=== PATIENT | male | born 1955 | race American Indian/Alaskan Native ===

== ENCOUNTER 2019-02-11 07:44 | Day surgery (SDC) | payer BC, OTHER ==
[~2019-02-11 07:44] MED LIST: NACL 0.9% 1000 ML 1,000 ML IV SCH
[2019-02-11] MEDS ORDERED: DIPRIVAN 10 MG/ML IV ONE ×2 (10:47)
[2019-02-11] MEDS ORDERED: XYLOCAINE 1% 20 mL ONE (10:47)
[2019-02-11] MEDS ORDERED: VERSED ONE (10:47)
--- NOTE | 2019-02-11 11:36 | Operative Report ---
PROCEDURE: EGD with biopsy and esophageal balloon dilation. INDICATIONS: This is a 63-year-old -[place]er gentleman with an underlying history of diabetes mellitus, hypertension, congestive heart failure, which is controlled. He has lately been having some problems with dysphagia. EGD was done to assess for the problem and to treat it if possible. DESCRIPTION OF PROCEDURE: The procedure was done after getting informed consent with MAC anesthesia. Instrument was passed through the hypopharynx into the esophagus, which showed some mild esophageal stenosis. This was dilated at the end of the procedure with 18 mm balloon that was maintained for a minute. Biopsy was also done from the midesophagus to rule out for possible eosinophilic esophagitis. Stomach showed abnormal mucosa in the proximal stomach. Biopsy was done to rule out for any early neoplastic changes. Biopsy was also done from the gastric antrum and the gastric body and angularis incisura to rule out for eosinophilic esophagitis. The pylorus was patent. The duodenum in the first and the second portion appeared normal. There was minimal bleeding from the biopsy sites. ASSESSMENT AND PLAN: Dysphagia; moderate erosive esophagitis; mild esophageal stenosis, status post balloon dilation; abnormal gastric mucosa of the proximal stomach, rule out early neoplasm; gastritis, rule out eosinophilic esophagitis. There was minimal bleeding from the biopsy sites. No complications associated with the procedure. The patient will be treated with PPI as CEA level will be done. We will wait for the biopsy results and further treatment adjustment will be done according to the biopsy findings and a colonoscopy will be done as part of colon polyp screening. The patient will be asked to follow up in the office in 1-2 weeks' time. Procedure was done in the GI lab with assistance of anesthesia and with assistance in the presence of RNRitika and Shi chaidez. JOB# [id number] SANDY/CELSO
[2019-02-11 11:52] VITALS: BP 111/73
--- NOTE | 2019-02-11 14:05 | Anesthesia Day of Surgery ---
Anesthesia Day of Surgery - Day of Surgery Patient Examined: Yes Patient H&P Reviewed: Yes Patient is NPO: Yes
--- NOTE | 2019-02-11 14:05 | Anesthesia Consultation ---
Anesthesia Consult and Med Hx Date of service: 02/11/19 - Airway Anesthetic Teeth Evaluation: Good ROM Head & Neck: Adequate Mental/Hyoid Distance: Adequate Mallampati Class: Class III Intubation Access Assessment: Possibly Difficult - Pulmonary Exam CTA: Yes - Cardiac Exam Cardiac Exam: RRR - Pre-Operative Health Status ASA Pre-Surgery Classification: ASA3 Proposed Anesthetic Plan: MAC - Pulmonary Hx Smoking: No Hx Respiratory Symptoms: No - Cardiovascular System Hx Hypertension: Yes Hx Coronary Artery Disease: No (hx nonischemic CHF EF 30-35%) Hx Heart Attack/AMI: No Hx Percutaneous Transluminal Coronary Angioplasty (PTCA): No Hx Cardia Arrhythmia: No Hx Internal Defibrillator: No (mentioned in previous cardiology note but patient denies) - Central Nervous System CVA: No Hx Psychiatric Problems: No - Gastrointestinal Hx Gastroesophageal Reflux Disease: Yes (controlled) - Endocrine Hx Renal Disease: No Hx Liver Disease: No Hx Non-Insulin Dependent Diabetes: Yes Hx Hypothyroidism: Yes - Other Systems Hx Obesity: No - Additional Comments Anesthesia Medical History Comments: Reviewed most recent TTE, EKG, and cardiology note from outpatient end polisher. Functional capacity >4mets, no SOB/CP, no signs of decompensation. Denies hx arrhythmia.
--- NOTE | 2019-02-11 14:08 | Post Anesthesia Evaluation ---
- Post Anesthesia Evaluation Patient Participated: Yes Airway Patent: Yes Stable Respiratory Function: Yes Nausea/Vomiting: No Temp > 96.8F: Yes Pain Manageable: Yes Adequeate Hydration: Yes Anesthesia Complications: No Other Comments: In PACU, irregular HR noted on monitor. Alert and oriented, normotensive, SpO2 >95% on room air, asymptomatic. 12-lead EKG showed irregular rhythm concerning for a-fib which was new from most recent outpatient EKG and no hx afib known to patient or mentioned in previous cardiology note. Discussed findings and concerns with patient and daughter and they agreed to be taken to the ED for furhter evaluation. Report given to ED board mill supervisor and ED physician.
--- NOTE | 2019-02-11 15:06 | Operative Report ---
INDICATIONS: A 63-year-old -[place]altese gentleman with an underlying history of diabetes mellitus, hypertension, and congestive heart failure, which is well controlled. EGD was done prior to the colonoscopy, which included biopsy as well as balloon dilation of the esophagus. Colonoscopy was done as part of colon polyp screening. DESCRIPTION OF PROCEDURE: Procedure was done after getting informed consent with MAC anesthesia. Initial rectal exam was unremarkable. Instrument was passed through the rectum onto the cecum, which was identified by the ileocecal valve and the appendiceal orifice. Visualization was fair to good. Cecum, ascending colon showed normal mucosa. There was a solitary small polyp noted in the ascending colon that was removed by cold biopsy. The remaining part of the proximal colon, transverse colon, descending colon, and sigmoid showed normal mucosa. There was no additional polyps or diverticular disease noted. The rectum showed mild to moderate internal hemorrhoid on the retroverted view. There was minimal bleeding from the biopsy sites. No complications associated with the procedure. ASSESSMENT: Solitary ascending colon polyp, moderate internal hemorrhoids. PLAN: To encourage the patient to avoid aspirin and aspirin-related products for the next few days. Resume home medication and follow up in the office in 1-2 weeks' time and also wait for the biopsy results from the biopsies the were done from the abnormal mucosa and the proximal stomach. The procedure was done in the GI lab with assistance of anesthesia and with the presence and assistance of RNRitika and Shi chaidez. JOB# [id number] SANDY/CELSO CRAFT
== END 2019-02-11 07:45 | disposition home or self-care (01) ==
LOC: GIO 07:44
DX: Z12.11 Encounter for screening for malignant neoplasm of colon (principal); D12.2 Benign neoplasm of ascending colon; K29.50 Unspecified chronic gastritis without bleeding; K64.8 Other hemorrhoids; K31.89 Other diseases of stomach and duodenum; K22.2 Esophageal obstruction; I48.91 Unspecified atrial fibrillation; I42.8 Other cardiomyopathies; I50.9 Heart failure, unspecified; I11.0 Hypertensive heart disease with heart failure; E78.00 Pure hypercholesterolemia, unspecified; E11.649 Type 2 diabetes mellitus with hypoglycemia without coma; K21.0 Gastro-esophageal reflux disease with esophagitis; M19.90 Unspecified osteoarthritis, unspecified site; E89.0 Postprocedural hypothyroidism; Z79.899 Other long term (current) drug therapy; Z79.82 Long term (current) use of aspirin; Z79.4 Long term (current) use of insulin; Z98.890 Other specified postprocedural states
CPT/HCPCS: 43239; 43249; 45380; 82962; 88305; 88342; 93005; 93010; J2250; J2704; J7030; C1726

== ENCOUNTER 2019-02-11 12:54 | Inpatient (IN) | payer OTHER ==
--- NOTE | 2019-02-11 13:01 | Event Note ---
ED Screening Note ED Screening Note: WAS HAVING COLONOSCOPY AND WENT INTO AFIB HR REG ON ARRIVAL TO ER NO HX OF SAME PMH STRESS NORMAL 1 Y AGO HTN HPLD HYPOTHYROID CHF AMI IN PAST DM RX LIPITOR LISINOPRIL SYNTHROID COREG ASA METOP FARXIGA GLIPIZIDE This initial assessment/diagnostic orders/clinical plan/treatment(s) is/are subject to change based on patients health status, clinical progression and re- assessment by fellow clinical providers in the ED. Further treatment and workup at subsequent clinical providers discretion. Patient/guardian urged not to elope from the ED as their condition may be serious if not clinically assessed and managed. Initial orders include: MUSIC HISTORIAN PAF IN GI LAB [facility] [place]
[2019-02-11 13:33] LABS: Bilirubin,Urine NEG (Negative); Blood,Urine NEG (Negative); Color,Urine Yellow (Yellow); Mucus,Urine FEW /HPF; Protein,Urine <15 mg/dL mg/dL (Negative); Urobilinogen,Urine < 2.0 mg/dL (<2.0); WBC,Urine < 1.0 /HPF (0.0-6.0)
--- NOTE | 2019-02-11 13:43 | Emergency Department Report ---
ED Palpitations HPI - General Chief Complaint: Arrhythmia/Palpitations Stated Complaint: SENT FROM GI LAB Time Seen by Provider: 02/11/19 12:57 Source: patient Mode of arrival: Wheelchair Limitations: No Limitations - History of Present Illness Initial Comments: Patient is a 63-year-old male presents to emergency room for evaluation of new onset A. fib. Patient was having a endoscopy, colonoscopy and GI lab and patient was sent here for evaluation of a new onset A. fib. Patient does not have a history of A. fib. Patient states that he was asymptomatic except for rapid heartbeat and did not have any chest pain, shortness of breath or palpitations.. Patient transported here via wheelchair from our GI lab for evaluation. Patient states she has history of CHF, diabetes and hypertension. 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 MD Complaint: "heart racing" -: Sudden Context: occured during rest Associated Symptoms: denies: chest pain, shortness of breath, syncope, near- syncope, nausea/vomiting, anxiety, diaphoresis, cough, parasthesias, feeling of impending doom, muscle cramps - Related Data Home Medications Medication Instructions Recorded Confirmed Last Taken Aspirin [Aspirin BABY CHEW TAB] 81 mg PO DAILY 09/02/13 02/11/19 02/07/19 Atorvastatin Calcium [Lipitor] 40 mg PO QHS 09/02/13 02/10/19 09/21/12 Carvedilol 25 mg PO BID 09/02/13 02/11/19 02/11/19 Levothyroxine Sodium 100 mcg PO DAILY 09/02/13 02/11/19 02/10/19 Lisinopril 40 mg PO DAILY 09/02/13 02/11/19 02/11/19 Farxiga 1 tab PO DAILY 02/10/19 02/11/19 02/10/19 Metoprolol 1 tab PO DAILY 02/10/19 02/10/19 Unknown glipiZIDE 1 tab PO DAILY 02/10/19 02/11/19 02/10/19 Allergies Allergy/AdvReac Type Severity Reaction Status Date / Time No Known Allergies Allergy Verified 02/11/19 13:01 ED Review of Systems ROS: Stated complaint: SENT FROM GI LAB Other details as noted in HPI Constitutional: denies: chills, fever Eyes: denies: eye pain, eye discharge, vision change ENT: denies: ear pain, throat pain Respiratory: denies: cough, shortness of breath, wheezing Cardiovascular: denies: chest pain, palpitations Endocrine: no symptoms reported Gastrointestinal: denies: abdominal pain, nausea, diarrhea Genitourinary: denies: urgency, dysuria Musculoskeletal: denies: back pain, joint swelling, arthralgia Skin: denies: rash, lesions Neurological: denies: headache, weakness, paresthesias Psychiatric: denies: anxiety, depression Hematological/Lymphatic: denies: easy bleeding, easy bruising ED Past Medical Hx - Past Medical History Previous Medical History?: Yes Hx Hypertension: Yes Hx Heart Attack/AMI: Yes Hx Congestive Heart Failure: Yes Hx Diabetes: Yes Hx GERD: Yes Hx Arthritis: Yes Additional medical history: HLD, gout, hypothyroid - Surgical History Past Surgical History?: Yes Additional Surgical History: thyroidectomy - Family History Family history: no significant - Social History Smoking Status: Never Smoker Substance Use Type: None - Medications Home Medications: Home Medications Medication Instructions Recorded Confirmed Last Taken Type Aspirin [Aspirin BABY CHEW TAB] 81 mg PO DAILY 09/02/13 02/11/19 02/07/19 History Atorvastatin Calcium [Lipitor] 40 mg PO QHS 09/02/13 02/10/19 09/21/12 History Carvedilol 25 mg PO BID 09/02/13 02/11/19 02/11/19 History Levothyroxine Sodium 100 mcg PO DAILY 09/02/13 02/11/19 02/10/19 History Lisinopril 40 mg PO DAILY 09/02/13 02/11/19 02/11/19 History Farxiga 1 tab PO DAILY 02/10/19 02/11/19 02/10/19 History Metoprolol 1 tab PO DAILY 02/10/19 02/10/19 Unknown History glipiZIDE 1 tab PO DAILY 02/10/19 02/11/19 02/10/19 History ED Physical Exam - General Limitations: No Limitations General appearance: alert, in no apparent distress - Head Head exam: Present: atraumatic, normocephalic - Eye Eye exam: Present: normal appearance - ENT ENT exam: Present: mucous membranes moist - Neck Neck exam: Present: normal inspection - Respiratory Respiratory exam: Present: normal lung sounds bilaterally. Absent: respiratory distress, wheezes, rales - Cardiovascular Cardiovascular Exam: Present: regular rate, normal rhythm. Absent: systolic murmur, diastolic murmur, rubs, gallop - GI/Abdominal GI/Abdominal exam: Present: soft, normal bowel sounds. Absent: distended, tenderness, guarding - Rectal Rectal exam: Present: deferred - Extremities Exam Extremities exam: Present: normal inspection - Back Exam Back exam: Present: normal inspection - Neurological Exam Neurological exam: Present: alert, oriented X3 - Psychiatric Psychiatric exam: Present: normal affect, normal mood - Skin Skin exam: Present: warm, dry, intact, normal color. Absent: rash ED Course Vital Signs 02/11/19 02/11/19 02/11/19 12:57 14:29 14:30 Temperature 97.9 F Pulse Rate 79 77 Respiratory 13 22 Rate Blood Pressure 134/83 115/83 [Right] O2 Sat by Pulse 100 98 98 Oximetry - Reevaluation(s) Reevaluation #1: Discussed all results with patient. Patient will be admitted to the hospitalist service. Patient agrees to plan of care. 02/11/19 14:59 - Consultations Consultation #1: Hospitalist consulted for admission. Hospitalist to admit patient. Hospitalist to assume care patient. 02/11/19 14:59 ED Medical Decision Making - Lab Data Result diagrams: 02/11/19 13:32 02/11/19 13:32 - EKG Data EKG shows normal: axis, intervals, QRS complexes, ST-T waves Rate: normal - EKG Data Interpretation: other (atrial fibrillation) - Radiology Data Radiology results: report reviewed CHEST 2 VIEWS INDICATION: Chest pain, shortness of breath, tachycardia. COMPARISON: None FINDINGS: Support devices: None. Heart: Within normal limits. Sternotomy wires are noted indicating previous thoracic surgery. Lungs/pleura: No acute air space or interstitial disease. No pneumothorax. Additional findings: None. IMPRESSION: No acute findings. - Medical Decision Making Patient is a 63-year-old male that presents to emergency room with new onset A. fib. Patient's labs unremarkable. Patient's EKG confirms A. fib. Patient admitted to the hospitalist service. Patient's labs are unremarkable. Chest x- ray negative. - Differential Diagnosis new-onset A. fib Critical Care Time: Yes Critical care attestation.: If time is entered above; I have spent that time in minutes in the direct care of this critically ill patient, excluding procedure time. Critical Care Time: 35 minutes ED Disposition Clinical Impression: New onset a-fib Disposition: DC-09 OP ADMIT IP TO THIS HOSP Is pt being admited?: Yes Does the pt Need Aspirin: No Condition: Critical Time of Disposition: 15:01
[2019-02-11 13:49] LABS: Eosinophils % (Auto) 0.5 % (0.0-4.3); Hematocrit 46.3 % (35.5-45.6); Hemoglobin 15.5 gm/dl (11.8-15.2); Lymphocytes # (Auto) 0.7 K/mm3 (1.2-5.4); Lymphocytes % (Auto) 14.2 % (13.4-35.0); Mean Corpuscular HGB Conc 33 % (32-34); Mean Corpuscular Volume 89 fl (84-94); Monocytes # (Auto) 0.7 K/mm3 (0.0-0.8); Monocytes % (Auto) 13.7 % (0.0-7.3); Platelet Count 206 K/mm3 (140-440); Red Cell Distribution Width 14.7 % (13.2-15.2)
--- NOTE | 2019-02-11 14:01 | XRay Report ---
CHEST 2 VIEWS INDICATION: Chest pain, shortness of breath, tachycardia. COMPARISON: None FINDINGS: Support devices: None. Heart: Within normal limits. Sternotomy wires are noted indicating previous thoracic surgery. Lungs/pleura: No acute air space or interstitial disease. No pneumothorax. Additional findings: None. IMPRESSION: No acute findings. Signer Name: Tahir Gonsalez Jr, MD Signed: 02/11/2019 1:57 PM Workstation Name: [id number]
[2019-02-11 14:15] LABS: Alanine Aminotransferase 15 units/L (7-56); Albumin 4.4 g/dL (3.9-5); BUN/Creatinine Ratio 11; Blood Urea Nitrogen 13 mg/dL (9-20); Calcium 9.7 mg/dL (8.4-10.2); Hemolysis Index 7
--- NOTE | 2019-02-12 00:01 | Event Note ---
Date: 02/11/19 See dictated history and physical in the reports Atrial fibrillation with rapid ventricular rate Hypertension Hypothyroidism Congestive heart failure Type 2 diabetes Hyperlipidemia
[2019-02-12] MEDS ORDERED: LASIX PO PRN (00:02)
[2019-02-12] MEDS ORDERED: SODIUM CHLORIDE FLUSH SYRINGE 10 ML IV PRN (00:03)
[2019-02-12] MEDS ORDERED: DILAUDID IV PRN (00:03)
[2019-02-12] MEDS ORDERED: ZOFRAN IV PRN (00:03)
[2019-02-12] MEDS ORDERED: TYLENOL PO PRN (00:03)
[2019-02-12] MEDS: GLUCOTROL PO SCH ×3 (00:25→22:39)
[2019-02-12] MEDS: COREG PO SCH ×3 (00:34→19:07)
[2019-02-12] MEDS: PEPCID PO SCH ×3 (00:37→22:39)
--- NOTE | 2019-02-12 02:12 | History and Physical Report ---
CHIEF COMPLAINT: Palpitations since during endoscopy procedure. HISTORY OF PRESENT ILLNESS: A 63-year-old male sent to the Emergency Room for evaluation of new-onset AFib with rapid ventricular rate. The patient was having endoscopy in the form of colonoscopy in the GI lab, and the patient was found to have atrial fibrillation with rapid ventricular rate. The patient was sent to the Emergency Room for evaluation. The patient does not have any chest pain. The patient has palpitations. The patient has been transferred from the GI lab to the Emergency Room for fast heart rate and atrial fibrillation. No syncope, no seizures. No chest pain. No diaphoresis. PAST MEDICAL HISTORY: Significant for hypertension, coronary artery disease, congestive heart failure, diabetes, GERD, arthritis, hyperlipidemia and hypothyroidism. PAST SURGICAL HISTORY: Thyroidectomy. SOCIAL HISTORY: Does not smoke. FAMILY HISTORY: Hypertension. CURRENT MEDICATIONS: On chart. REVIEW OF SYSTEMS: Significant for palpitations. No chest pain. Otherwise, review of systems negative. PHYSICAL EXAMINATION: GENERAL: Elderly male, cooperative during examination. VITAL SIGNS: Blood pressure is 121/73, temperature is 98.5, pulse is 77, respirations are 18, sats are 97%. HEENT: Unremarkable. Pupils equal and reactive. NECK: Supple, no lymphadenopathy, no thyromegaly. LUNGS: Clear to auscultation and percussion. Good air entry. CARDIOVASCULAR: S1, S2 heard. No gallop, no murmur, no rub. Apical impulse in left fifth intercostal space and midclavicular line. Fast, irregular heart rate. ABDOMEN: Soft and benign. No hepatosplenomegaly. No guarding, no rigidity. Hernial orifices are normal. EXTREMITIES: Good pedal pulses. No pedal edema. CENTRAL NERVOUS SYSTEM: Alert and oriented x 4, nonfocal exam. LABORATORY DATA: Significant for a white count of 5100, H and H of 15.5 and 46.3, platelet count of 206,000. Electrolytes are normal. Glucose is 115 and 181. Urine is normal. EKG shows atrial fibrillation with rapid ventricular rate. Chest x-ray, no acute findings. ASSESSMENT AND PLAN: 1. Atrial fibrillation with rapid ventricular rate. The patient initiated on p.o. Cardizem. Also to continue Coreg. Rate is improved. Cardiology consult requested. 2. Type 2 diabetes. Continue Glucotrol and alogliptin and metformin. Accu-Cheks a.c. and at bedtime with moderate dose sliding scale coverage. 3. Hypertension. Continue lisinopril and spironolactone. Also, diltiazem CD 120 mg daily. 4. Hypothyroidism. Continue levothyroxine. 5. Hyperlipidemia. Continue statins. 6. Gastroesophageal reflux disease. Continue famotidine. 7. Deep venous thrombosis prophylaxis, Lovenox 40 mg subcutaneous daily. [facility]# [id number] VSM/NTS
[2019-02-12] MEDS: CARDIZEM PO SCH ×3 (03:48→12:39)
[2019-02-12] MEDS: SYNTHROID PO SCH (05:20)
[2019-02-12] MEDS ORDERED: NON-FORMULARY (Dapagliflozin Propanediol [Farxiga] 10 MG) PO SCH (10:00)
[2019-02-12] MEDS ORDERED: ALOGLIPTIN BENZOATE 25 MG PO SCH (10:00)
[2019-02-12] MEDS: BABY ASPIRIN PO SCH (10:09)
[2019-02-12] MEDS: THERAGRAN Tab PO SCH (10:09)
[2019-02-12] MEDS: SODIUM CHLORIDE FLUSH SYRINGE 10 ML IV SCH ×2 (10:10→22:40)
[2019-02-12] MEDS: ZESTRIL PO SCH (10:10)
[2019-02-12] MEDS: ALDACTONE PO SCH (10:13)
--- NOTE | 2019-02-12 16:31 | Consultation ---
History of Present Illness Consult date: 02/12/19 Requesting physician: YUMI FALLON Consult reason: atrial fibrillation History of present illness: The patient is a 63 YO male with a past medical history of NICMP, HFrEF, HTN, DM, hypothyroidism s/p thyroidectomy (2008), GERD. He is followed by Dr. Bui at [facility]. He presented for evaluation of new onset atrial fibrillation and atrial flutter. Pt presented yesterday for scheduled endoscopy with Dr. Mckenzie. He states that following his endoscopy, he was noted to be in atrial fibrillation and atrial flutter and was referred to ED for further eval/management. Pt denies any occurrence of cardiac symptoms. He denies any known prior history of arrhythmia. Echo done 11/2017 showed EF 30-35%, mild TR. Past History Past Medical History: diabetes, GERD, heart failure, hypertension, hypothyroidism Past Surgical History: thyroidectomy Social history: denies: smoking, alcohol abuse, prescription drug abuse Medications and Allergies Allergies Allergy/AdvReac Type Severity Reaction Status Date / Time No Known Allergies Allergy Verified 02/11/19 13:01 Home Medications Medication Instructions Recorded Confirmed Last Taken Type Aspirin [Aspirin BABY CHEW TAB] 81 mg PO DAILY 09/02/13 02/11/19 02/07/19 History Alogliptin Benzoate [Alogliptin] 25 mg PO QDAY 02/11/19 02/11/19 Unknown History AtorvaSTATin [Lipitor] 80 mg PO QHS 02/11/19 02/11/19 Unknown History Carvedilol [Coreg] 6.25 mg PO BID 02/11/19 02/11/19 02/11/19 History Dapagliflozin Propanediol [Farxiga] 10 mg PO QDAY 02/11/19 02/11/19 Unknown History Furosemide [Lasix TAB] 80 mg PO QDAY PRN 02/11/19 02/11/19 Unknown History Levothyroxine [Synthroid] 125 mcg PO QAM 02/11/19 02/11/19 Unknown History Lisinopril [Zestril TAB] 10 mg PO QDAY 02/11/19 02/11/19 02/11/19 History Multivitamin Tab [Multiple Vitamin 1 each PO QDAY 02/11/19 02/11/19 Unknown History TAB (Theragran)] Spironolactone [Aldactone] 25 mg PO QDAY 02/11/19 02/11/19 Unknown History glipiZIDE [Glucotrol] 10 mg PO BID 02/11/19 02/11/19 Unknown History Active Meds: Active Medications Acetaminophen (Tylenol) 650 mg PO Q4H PRN PRN Reason: Pain MILD(1-3)/Fever >100.5/DORSEY Aspirin (Baby Aspirin) 81 mg PO DAILY [facility] Last Admin: 02/12/19 10:09 Dose: 81 mg Documented by: Atorvastatin Calcium (Lipitor) 80 mg PO QHS [facility] Carvedilol (Coreg) 6.25 mg PO BID [facility] Last Admin: 02/12/19 10:09 Dose: 6.25 mg Documented by: Diltiazem HCl (Cardizem) 30 mg PO Q6HR [facility] Last Admin: 02/12/19 12:39 Dose: 30 mg Documented by: Enoxaparin Sodium (Lovenox) 40 mg SUB-Q QDAY@2200 [facility] Famotidine (Pepcid) 20 mg PO BID [facility] Last Admin: 02/12/19 10:09 Dose: 20 mg Documented by: Furosemide (Lasix) 80 mg PO QDAY PRN PRN Reason: Edema Glipizide (Glucotrol) 10 mg PO BID [facility] Last Admin: 02/12/19 10:09 Dose: 10 mg Documented by: Hydromorphone HCl (Dilaudid) 0.5 mg IV Q3H PRN PRN Reason: Pain , Severe (7-10) Insulin Human Lispro (Humalog) 0 unit SUB-Q QHS [facility]; Protocol Levothyroxine Sodium (Synthroid) 125 mcg PO QAM@0600 [facility] Last Admin: 02/12/19 05:20 Dose: 125 mcg Documented by: Lisinopril (Zestril) 10 mg PO QDAY [facility] Last Admin: 02/12/19 10:10 Dose: Not Given Documented by: Miscellaneous Medication (Alogliptin Benzoate [Alogliptin]) 25 mg PO QDAY [facility] Miscellaneous Medication (Dapagliflozin Propanediol [Farxiga]) 10 mg PO QDAY [facility] Multivitamins (Theragran Tab) 1 each PO QDAY [facility] Last Admin: 02/12/19 10:09 Dose: 1 each Documented by: Ondansetron HCl (Zofran) 4 mg IV Q8H PRN PRN Reason: Nausea And Vomiting Oxycodone/Acetaminophen (Percocet 5/325) 1 tab PO Q6H PRN PRN Reason: Pain, Moderate (4-6) Sodium Chloride (Sodium Chloride Flush Syringe 10 Ml) 10 ml IV BID [facility] Last Admin: 02/12/19 10:10 Dose: 10 ml Documented by: Sodium Chloride (Sodium Chloride Flush Syringe 10 Ml) 10 ml IV PRN PRN PRN Reason: LINE FLUSH Spironolactone (Aldactone) 25 mg PO QDAY [facility] Last Admin: 02/12/19 10:13 Dose: Not Given Documented by: Review of Systems All systems: negative (no complaints) Physical Examination Vital Signs Temp Pulse Resp BP Pulse Ox 97.9 F 79 13 134/83 100 02/11/19 12:57 02/11/19 12:57 02/11/19 12:57 02/11/19 12:57 02/11/19 12:57 General appearance: no acute distress HEENT: Positive: PERRL, Normocephaly, Mucus Membranes Moist Neck: Positive: neck supple, trachea midline Cardiac: Positive: irregularly irregular, S1/S2 Lungs: Positive: Decreased Breath Sounds Neuro: Positive: Grossly Intact Abdomen: Negative: Tender Skin: Negative: Rash Musculoskeletal: No Pain Extremities: Absent: edema Results 02/11/19 13:32 02/11/19 13:32 - Imaging and Cardiology Echo: pending, report reviewed ( 11/2017 showed EF 30-35%, mild TR. ) EKG: report reviewed, image reviewed EKG interpretations - Telemetry EKG Rhythm: Atrial Fibrillation - EKG Supraventricular dysrhythmia: atrial fibrillation Assessment and Plan Optimize HR- d/c CCB in setting of CMP and increase coreg. Initiate heparin gtt. Tentatively plan for AUGUSTINA guided DCCV in tomorrow. NPO after MN. The patient has been seen in conjunction with Dr. Harmon who agrees with the assessment and plan of care. - Patient Problems (1) Atrial fibrillation and flutter Current Visit: Yes Status: Acute (2) NICM (nonischemic cardiomyopathy) Current Visit: Yes Status: Chronic (3) HTN (hypertension) Current Visit: Yes Status: Chronic (4) Diabetes Current Visit: Yes Status: Chronic (5) Hypothyroidism Current Visit: Yes Status: Chronic (6) S/P thyroidectomy Current Visit: Yes Status: Chronic
[2019-02-12] MEDS ORDERED: COREG PO SCH (16:39)
[2019-02-12] MEDS ORDERED: HEPARIN 10,000 UNITS/10 ML IV ONE (16:47)
[2019-02-12] MEDS ORDERED: HEPARIN/ 0.45% NACL-25,000 UNIT/500 ML 25,000 UNIT/500 ML BAG IV SCH (17:00)
[2019-02-12 20:48] LABS: Hemoglobin 15.4 gm/dl (11.8-15.2)
[2019-02-12 20:59] LABS: INR 1.42 (0.87-1.13)
[2019-02-12 21:53] LABS: Partial Thromboplastin Time > 240.0 Sec. (24.2-36.6)
[2019-02-12] MEDS ORDERED: LOVENOX SUB-Q SCH (22:00)
[2019-02-12] MEDS ORDERED: ELIQUIS PO SCH (22:00)
[2019-02-12] MEDS: HumaLOG SUB-Q SCH (22:39)
[2019-02-13] MEDS: COREG PO SCH ×3 (00:37→22:02)
[2019-02-13] MEDS: SYNTHROID PO SCH (06:14)
[2019-02-13 06:32] LABS: Hematocrit 46.8 % (35.5-45.6); Hemoglobin 15.6 gm/dl (11.8-15.2); Mean Corpuscular HGB Conc 33 % (32-34); Mean Corpuscular Volume 89 fl (84-94); Platelet Count 220 K/mm3 (140-440); Red Blood Count 5.27 M/mm3 (3.65-5.03); Red Cell Distribution Width 14.5 % (13.2-15.2)
[2019-02-13 07:19] LABS: Alanine Aminotransferase 15 units/L (7-56); Albumin 4.3 g/dL (3.9-5); BUN/Creatinine Ratio 13; Blood Urea Nitrogen 15 mg/dL (9-20); Calcium 9.7 mg/dL (8.4-10.2); Hemolysis Index 3
--- NOTE | 2019-02-13 08:44 | Progress Note ---
Assessment and Plan Assessment and plan: New onset Atrial fibrillation with RVR Patient was having colonoscopy Admitted Cardiology following Coreg for rate control Hypertension Monitor BP Diabetes mellitus type 2 Fingerstick qac and hs Hypothyroidism Non-ischemic cardiomyopathy Chronic systolic CHF Coreg, Aldactone Full code History Interval history: Patient was having colonoscopy developed rapid afib Palpitations No chest pain Hospitalist Physical - Physical exam Narrative exam: Gen: Not in acute distress, lying in bed, HEENT: Normocephalic, atraumatic Neck: supple, no JVD Heart: S1 and S2 irreg, rapid, no murmurs, rubs or gallop Lungs: Clear, no crackles or wheeze Abd: soft, non tender, non distended, normal BS Ext:no edema, no clubbing, no cyanosis Neuro: Awake,alert,oriented,moves all ext Psych:Normal mood - Constitutional Vitals: Temp Pulse Resp BP Pulse Ox 98.0 F 65 20 95/54 100 02/13/19 04:27 02/13/19 04:27 02/13/19 04:27 02/13/19 04:27 02/13/19 04:27 General appearance: Present: no acute distress Results - Labs CBC & Chem 7: 02/14/19 05:01 02/14/19 05:01 Labs: Laboratory Last Values WBC 4.6 K/mm3 (4.5-11.0) 02/13/19 05:40 RBC 5.27 M/mm3 (3.65-5.03) H 02/13/19 05:40 Hgb 15.6 gm/dl (11.8-15.2) H 02/13/19 05:40 Hct 46.8 % (35.5-45.6) H 02/13/19 05:40 MCV 89 fl (84-94) 02/13/19 05:40 MCH 30 pg (28-32) 02/13/19 05:40 MCHC 33 % (32-34) 02/13/19 05:40 RDW 14.5 % (13.2-15.2) 02/13/19 05:40 Plt Count 220 K/mm3 (140-440) 02/13/19 05:40 Lymph % (Auto) 14.2 % (13.4-35.0) 02/11/19 13:32 [place] % (Auto) Receptionist Secretary 02/13/19 05:40 Eos % (Auto) 0.5 % (0.0-4.3) 02/11/19 13:32 Baso % (Auto) 1.0 % (0.0-1.8) 02/11/19 13:32 Lymph # 0.7 K/mm3 (1.2-5.4) L 02/11/19 13:32 [place] # 0.7 K/mm3 (0.0-0.8) 02/11/19 13:32 Eos # 0.0 K/mm3 (0.0-0.4) 02/11/19 13:32 Baso # 0.0 K/mm3 (0.0-0.1) 02/11/19 13:32 Seg Neutrophils % 70.6 % (40.0-70.0) H 02/11/19 13:32 Seg Neutrophils # 3.6 K/mm3 (1.8-7.7) 02/11/19 13:32 PT 17.0 Sec. (12.2-14.9) H 02/12/19 20:14 INR 1.42 (0.87-1.13) H 02/12/19 20:14 APTT > 240.0 Sec. (24.2-36.6) H* 02/12/19 20:14 Heparin Anti-Xa Level 1.35 U.I./ml (0.3-0.7) H 02/13/19 06:10 Sodium 135 mmol/L (137-145) L 02/13/19 05:40 Potassium 4.4 mmol/L (3.6-5.0) 02/13/19 05:40 Chloride 97.2 mmol/L (98-107) L 02/13/19 05:40 Carbon Dioxide 27 mmol/L (22-30) 02/13/19 05:40 15 mmol/L 02/13/19 05:40 BUN 15 mg/dL (9-20) 02/13/19 05:40 1.2 mg/dL (0.8-1.5) 02/13/19 05:40 Estimated GFR > 60 ml/min 02/13/19 05:40 13 % 02/13/19 05:40 Glucose 144 mg/dL (75-100) H 02/13/19 05:40 POC Glucose 174 (70-105) H 02/12/19 21:40 7.0 % (4-6) H 02/12/19 02:04 Calcium 9.7 mg/dL (8.4-10.2) 02/13/19 05:40 Magnesium 1.90 mg/dL (1.7-2.3) 02/11/19 13:32 0.60 mg/dL (0.1-1.2) 02/13/19 05:40 AST 14 units/L (5-40) 02/13/19 05:40 ALT 15 units/L (7-56) 02/13/19 05:40 100 units/L (35-129) 02/13/19 05:40 < 0.010 ng/mL (0.00-0.029) 02/11/19 15:44 7.7 g/dL (6.3-8.2) 02/13/19 05:40 4.3 g/dL (3.9-5) 02/13/19 05:40 1.3 % 02/13/19 05:40 TSH 1.040 mlU/mL (0.270-4.200) 02/11/19 13:32 Yellow (Yellow) 02/11/19 Unknown Clear (Clear) 02/11/19 Unknown 6.0 (5.0-7.0) 02/11/19 Unknown Ur Specific [place] 1.013 (1.003-1.030) 02/11/19 Unknown <15 mg/dl mg/dL (Negative) 02/11/19 Unknown >=500 mg/dL (Negative) 02/11/19 Unknown 20 mg/dL (Negative) 02/11/19 Unknown Neg (Negative) 02/11/19 Unknown Neg (Negative) 02/11/19 Unknown Neg (Negative) 02/11/19 Unknown < 2.0 mg/dL (<2.0) 02/11/19 Unknown Ur Leukocyte Esterase Neg (Negative) 02/11/19 Unknown < 1.0 /HPF (0.0-6.0) 02/11/19 Unknown 2.0 /HPF (0.0-6.0) 02/11/19 Unknown Few /HPF 02/11/19 Unknown Active Medications - Current Medications Current Medications: Generic Name Dose Route Start Last Admin Trade Name Freq PRN Reason Stop Dose Admin Acetaminophen 650 mg 02/12/19 00:03 Tylenol PO Q4H PRN Pain MILD(1-3)/Fever >100.5/DORSEY Aspirin 81 mg 02/12/19 10:00 02/12/19 10:09 Baby Aspirin PO 81 mg DAILY [facility] Administration Atorvastatin Calcium 80 mg 02/12/19 22:00 02/12/19 22:39 Lipitor PO 80 mg QHS [facility] Administration Benzocaine 3 spray 02/13/19 09:00 Hurricaine One 20% Topical [place] MM PREOP NR Carvedilol 12.5 mg 02/12/19 17:00 02/13/19 00:37 Coreg PO Not Given BID [facility] Famotidine 20 mg 02/12/19 01:00 02/12/19 22:39 Pepcid PO 20 mg BID [facility] Administration Furosemide 80 mg 02/12/19 00:02 Lasix PO QDAY PRN Edema Glipizide 10 mg 02/12/19 01:00 02/12/19 22:39 Glucotrol PO 10 mg BID [facility] Administration Hydromorphone HCl 0.5 mg 02/12/19 00:03 Dilaudid IV Q3H PRN Pain , Severe (7-10) Heparin Sodium/Sodium Chloride 25,000 unit in 500 mls @ 24 mls/hr 02/12/19 17:00 02/13/19 07:09 Heparin/ 0.45% Nacl-25,000 Unit/500 Ml IV 1,050 units/hr TITR [facility] 21 mls/hr Titration Protocol 1,200 UNITS/HR Insulin Human Lispro 0 unit 02/12/19 22:00 02/12/19 22:39 Humalog SUB-Q Not Given QHS [facility] Protocol Levothyroxine Sodium 125 mcg 02/12/19 06:00 02/13/19 06:14 Synthroid PO 125 mcg QAM@0600 [facility] Administration Lisinopril 10 mg 02/12/19 10:00 02/12/19 10:10 Zestril PO Not Given QDAY [facility] Miscellaneous Medication 25 mg 02/12/19 10:00 Alogliptin Benzoate [Alogliptin] PO QDAY [facility] Miscellaneous Medication 10 mg 02/12/19 10:00 Dapagliflozin Propanediol [Farxiga] PO QDAY [facility] Multivitamins 1 each 02/12/19 10:00 02/12/19 10:09 Theragran Tab PO 1 each QDAY [facility] Administration Ondansetron HCl 4 mg 02/12/19 00:03 Zofran IV Q8H PRN Nausea And Vomiting Oxycodone/Acetaminophen 1 tab 02/12/19 00:03 Percocet 5/325 PO Q6H PRN Pain, Moderate (4-6) Sodium Chloride 10 ml 02/12/19 10:00 02/12/19 22:40 Sodium Chloride Flush Syringe 10 Ml IV 10 ml BID [facility] Administration Sodium Chloride 10 ml 02/12/19 00:03 Sodium Chloride Flush Syringe 10 Ml IV PRN PRN LINE FLUSH Spironolactone 25 mg 02/12/19 10:00 02/12/19 10:13 Aldactone PO Not Given QDAY [facility]
[2019-02-13 08:52] LABS: Total Cells Counted 100
[2019-02-13 08:53] LABS: Anisocytosis Few; Large Platelets Rare; Platelet Estimate Consistent w Auto
[2019-02-13] MEDS ORDERED: HURRICAINE ONE 20% TOPICAL SPRAY MM NR (09:00)
[2019-02-13] MEDS ORDERED: VERSED ONE (11:51)
[2019-02-13] MEDS ORDERED: DIPRIVAN 10 MG/ML IV ONE ×2 (11:52)
[2019-02-13] MEDS ORDERED: NACL 0.9% 500 ML 500 ML IV SCH (12:00)
[2019-02-13] MEDS ORDERED: HURRICAINE ONE 20% TOPICAL SPRAY MM (12:04)
[2019-02-13] MEDS ORDERED: XYLOCAINE MPF 2% ONE (13:00)
--- NOTE | 2019-02-13 13:00 | Progress Note ---
Assessment and Plan Initiate oral anticoagulation with Eliquis. 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 Electrical cardioversion can be attempted as an outpt after 4 weeks of oral anticoagulation. - Patient Problems (1) New onset a-fib Current Visit: Yes Status: Acute (2) NICM (nonischemic cardiomyopathy) Current Visit: Yes Status: Chronic (3) HTN (hypertension) Current Visit: Yes Status: Chronic (4) Diabetes Current Visit: Yes Status: Chronic Qualifiers: Diabetes mellitus type: type 2 (5) Hypothyroidism Current Visit: Yes Status: Chronic Subjective Date of service: 02/13/19 Principal diagnosis: AF, NICMP, HTN, DM Interval history: No complaint. AUGUSTINA was attempted. the pt could not be esophageally intubated. As such cardioversion was cancelled. Objective Vital Signs Temp Pulse Pulse Resp Resp BP BP 02/13/19 12:24 80 19 108/77 02/13/19 04:27 98.0 F 65 20 95/54 02/13/19 02:00 64 02/13/19 00:37 64 93/56 02/12/19 23:43 98.0 F 64 18 93/56 02/12/19 21:20 64 02/12/19 19:24 98.2 F 82 20 119/84 02/12/19 19:07 73 113/70 02/12/19 16:46 97.3 F L 73 18 113/70 Pulse Ox Pulse Ox 02/13/19 12:24 99 02/13/19 04:27 100 02/13/19 02:00 02/13/19 00:37 02/12/19 23:43 95 02/12/19 21:20 02/12/19 19:24 99 02/12/19 19:07 02/12/19 16:46 97 - Physical Examination General: No Apparent Distress HEENT: Positive: PERRL, Normocephaly, Mucus Membranes Moist Neck: Positive: neck supple, trachea midline Cardiac: Positive: irregularly irregular, S1/S2 Lungs: Positive: clear to auscultation Neuro: Positive: Grossly Intact Abdomen: Negative: Tender Skin: Negative: Rash Musculoskeletal: No Pain Extremities: Absent: edema - Labs and Meds Cardiac Enzymes 02/13/19 Range/Units 05:40 AST 14 (5-40) units/L Coagulation 02/12/19 Range/Units 20:14 PT 17.0 H (12.2-14.9) Sec. INR 1.42 H (0.87-1.13) APTT > 240.0 H* (24.2-36.6) Sec. CBC 02/12/19 02/13/19 Range/Units 20:14 05:40 WBC 4.6 (4.5-11.0) K/mm3 RBC 5.27 H (3.65-5.03) M/mm3 Hgb 15.4 H 15.6 H (11.8-15.2) gm/dl Hct 47.0 H 46.8 H (35.5-45.6) % Plt Count 212 220 (140-440) K/mm3 Comprehensive Metabolic Panel 02/13/19 Range/Units 05:40 Sodium 135 L (137-145) mmol/L Potassium 4.4 (3.6-5.0) mmol/L Chloride 97.2 L (98-107) mmol/L Carbon Dioxide 27 (22-30) mmol/L BUN 15 (9-20) mg/dL Creatinine 1.2 (0.8-1.5) mg/dL Glucose 144 H (75-100) mg/dL Calcium 9.7 (8.4-10.2) mg/dL AST 14 (5-40) units/L ALT 15 (7-56) units/L Alkaline Phosphatase 100 (35-129) units/L Total Protein 7.7 (6.3-8.2) g/dL Albumin 4.3 (3.9-5) g/dL - Imaging and Cardiology EKG: report reviewed, image reviewed Echo: pending, report reviewed ( 11/2017 showed EF 30-35%, mild TR. )
--- NOTE | 2019-02-13 13:32 | Discharge Summary ---
Providers - Providers Date of Admission: 02/11/19 15:23 Date of discharge: 02/13/19 Attending physician: AYAN ENG 02/12/19 00:03 Consult to Physician [CONS] Routine Comment: Consulting Provider: LOI CHUN Physician Instructions: Reason For Exam: CHF exacerbation and A. fib with RVR [facility] Condition: Fair Disposition: DC-01 TO HOME OR SELFCARE Core Measure Documentation - Palliative Care Palliative Care/ Comfort Measures: Not Applicable - Core Measures Any of the following diagnoses?: none Exam - Constitutional Vitals: Temp Pulse Resp BP Pulse Ox 98.0 F 80 19 108/77 99 02/13/19 04:27 02/13/19 12:24 02/13/19 12:24 02/13/19 12:24 02/13/19 12:24 Plan Activity: advance as tolerated Diet: low fat, low cholesterol, low salt, diabetic Additional Instructions: 1.Follow up with PCP in 1 week. 2.Follow up with tin pourer in 1 week Follow up with: [facility] [Primary Care Provider] - 3-5 Days Prescriptions: Carvedilol [Coreg] 12.5 mg PO BID #60 tablet Famotidine [Pepcid] 20 mg PO BID #60 tablet
--- NOTE | 2019-02-13 15:30 | Anesthesia Consultation ---
Anesthesia Consult and Med Hx Date of service: 02/13/19 - Airway Anesthetic Teeth Evaluation: Good ROM Head & Neck: Adequate Mental/Hyoid Distance: Adequate Mallampati Class: Class III Intubation Access Assessment: Possibly Difficult - Pulmonary Exam CTA: Yes - Cardiac Exam Cardiac Exam: RRR - Pre-Operative Health Status ASA Pre-Surgery Classification: ASA3 Proposed Anesthetic Plan: MAC - Pulmonary Hx Smoking: No Hx Respiratory Symptoms: No - Cardiovascular System Hx Hypertension: Yes Hx Coronary Artery Disease: No Hx Heart Attack/AMI: No Hx Percutaneous Transluminal Coronary Angioplasty (PTCA): No Hx Cardia Arrhythmia: Yes (new onset a-fib) Hx Pacemaker: No Hx Internal Defibrillator: No - Central Nervous System Hx Seizures: No CVA: No Hx Psychiatric Problems: No - Gastrointestinal Hx Gastroesophageal Reflux Disease: No - Endocrine Hx Renal Disease: No Hx Liver Disease: No Hx Non-Insulin Dependent Diabetes: Yes Hx Hypothyroidism: Yes - Hematic Hx Anemia: No - Other Systems Hx Obesity: Yes - Additional Comments Anesthesia Medical History Comments: PMH CHF EF 30-35%, NICMP with new onset a- fib scheduled for AUGUSTINA/cardioversion.
--- NOTE | 2019-02-13 15:30 | Anesthesia Day of Surgery ---
Anesthesia Day of Surgery - Day of Surgery Patient Examined: Yes Patient H&P Reviewed: Yes Patient is NPO: Yes
--- NOTE | 2019-02-13 15:30 | Post Anesthesia Evaluation ---
- Post Anesthesia Evaluation Patient Participated: Yes Airway Patent: Yes Stable Respiratory Function: Yes Nausea/Vomiting: No Temp > 96.8F: Yes Pain Manageable: Yes Adequeate Hydration: Yes Anesthesia Complications: No
[2019-02-13] MEDS: BABY ASPIRIN PO SCH (16:51)
[2019-02-13] MEDS: PEPCID PO SCH ×2 (16:51→22:03)
[2019-02-13] MEDS: THERAGRAN Tab PO SCH (16:51)
[2019-02-13] MEDS: ALDACTONE PO SCH (16:51)
[2019-02-13] MEDS: GLUCOTROL PO SCH ×2 (16:51→22:03)
[2019-02-13] MEDS: ZESTRIL PO SCH (16:52)
[2019-02-13] MEDS: SODIUM CHLORIDE FLUSH SYRINGE 10 ML IV SCH ×2 (16:53→22:03)
[2019-02-13] MEDS ORDERED: CARDIZEM IV STA (19:03)
[2019-02-13] MEDS: PERCOCET 5/325 PO PRN (22:01)
[2019-02-13] MEDS: HumaLOG SUB-Q SCH (22:43)
[2019-02-13 23:40] LABS: Basophils # (Auto) 0.1 K/mm3 (0.0-0.1); Basophils % (Auto) 0.5 % (0.0-1.8); Hematocrit 47.1 % (35.5-45.6); Hemoglobin 15.6 gm/dl (11.8-15.2); Lymphocytes # (Auto) 0.5 K/mm3 (1.2-5.4); Lymphocytes % (Auto) 4.1 % (13.4-35.0); Mean Corpuscular HGB Conc 33 % (32-34); Mean Corpuscular Volume 88 fl (84-94); Monocytes # (Auto) 0.7 K/mm3 (0.0-0.8); Monocytes % (Auto) 5.8 % (0.0-7.3); Platelet Count 204 K/mm3 (140-440); Red Blood Count 5.33 M/mm3 (3.65-5.03); Red Cell Distribution Width 14.3 % (13.2-15.2)
--- NOTE | 2019-02-14 00:40 | Event Note ---
Date: 02/14/19 Pt spiked temp 101.4. Ordered CBC, Lactic Acid, and Blood Cultures. CBC resulted with leukocytosis of 12.8; empirically started on Rocephin
[2019-02-14] MEDS: ROCEPHIN/NS 1 GM/50 ML 1 GM/50 ML BAG IV SCH ×3 (01:10→21:16)
[2019-02-14 05:26] LABS: Hematocrit 46.1 % (35.5-45.6); Hemoglobin 15.2 gm/dl (11.8-15.2); Mean Corpuscular HGB Conc 33 % (32-34); Mean Corpuscular Volume 89 fl (84-94); Platelet Count 220 K/mm3 (140-440); Red Blood Count 5.21 M/mm3 (3.65-5.03); Red Cell Distribution Width 14.4 % (13.2-15.2)
[2019-02-14] MEDS: SYNTHROID PO SCH (05:34)
[2019-02-14 05:43] LABS: Calcium 9.3 mg/dL (8.4-10.2)
[2019-02-14] MEDS ORDERED: HumuLIN R IV STA (07:38)
[2019-02-14] MEDS ORDERED: CALCIUM GLUCONATE 1,000 MG in NACL 0.9% 100 ML IV STA (07:38)
--- NOTE | 2019-02-14 07:46 | Progress Note ---
Assessment and Plan Assessment and plan: New onset Atrial fibrillation with RVR Patient was having colonoscopy when developed palptations,diahgnosed with new onset afib Admitted Cardiology following Coreg for rate control Echo EF 15-20% AUGUSTINA attempted but probe could not be passed down, so not done Cardiology recommended dc home, orders put in but he had more palpitations ventricular rate 110 so not discharged. Order Cardizem 20mg iv X 1 Hypertension Monitor BP Diabetes mellitus type 2 Fingerstick qac and hs Hypothyroidism Non-ischemic cardiomyopathy Chronic systolic CHF Coreg, Aldactone Full code status History Interval history: Patient was having colonoscopy developed rapid afib, Was about to be discharged today, but has palpitations ventricular rate 110s so discharge cancelled Hospitalist Physical - Physical exam Narrative exam: Gen: Not in acute distress, lying in bed, HEENT: Normocephalic, atraumatic Neck: supple, no JVD Heart: S1 and S2 irreg,no murmurs, rubs or gallop Lungs: Clear, no crackles or wheeze Abd: soft, non tender, non distended, normal BS Ext:no edema, no clubbing, no cyanosis Neuro: Awake,alert,oriented,moves all ext Psych:Normal mood - Constitutional Vitals: Temp Pulse Resp BP Pulse Ox 97.9 F 66 18 75/51 94 02/14/19 04:35 02/14/19 04:35 02/14/19 04:35 02/14/19 04:31 02/14/19 04:35 General appearance: Present: no acute distress Results - Labs CBC & Chem 7: 02/14/19 08:57 02/14/19 08:57 Labs: Laboratory Last Values WBC 16.1 K/mm3 (4.5-11.0) H 02/14/19 05:01 RBC 5.21 M/mm3 (3.65-5.03) H 02/14/19 05:01 Hgb 15.2 gm/dl (11.8-15.2) 02/14/19 05:01 Hct 46.1 % (35.5-45.6) H 02/14/19 05:01 MCV 89 fl (84-94) 02/14/19 05:01 MCH 29 pg (28-32) 02/14/19 05:01 MCHC 33 % (32-34) 02/14/19 05:01 RDW 14.4 % (13.2-15.2) 02/14/19 05:01 Plt Count 220 K/mm3 (140-440) 02/14/19 05:01 Lymph % (Auto) 4.1 % (13.4-35.0) L 02/13/19 23:18 [place] % (Auto) 5.8 % (0.0-7.3) 02/13/19 23:18 Eos % (Auto) 0.0 % (0.0-4.3) 02/13/19 23:18 Baso % (Auto) 0.5 % (0.0-1.8) 02/13/19 23:18 Lymph # 0.5 K/mm3 (1.2-5.4) L 02/13/19 23:18 [place] # 0.7 K/mm3 (0.0-0.8) 02/13/19 23:18 Eos # 0.0 K/mm3 (0.0-0.4) 02/13/19 23:18 Baso # 0.1 K/mm3 (0.0-0.1) 02/13/19 23:18 Add Manual Diff Complete 02/13/19 05:40 Total Counted 100 02/13/19 05:40 Seg Neutrophils % 89.6 % (40.0-70.0) H 02/13/19 23:18 Seg Neuts % (Manual) 72.0 % (40.0-70.0) H 02/13/19 05:40 0 % 02/13/19 05:40 14.0 % (13.4-35.0) 02/13/19 05:40 Reactive Lymphs % (Man) 0 % 02/13/19 05:40 12.0 % (0.0-7.3) H 02/13/19 05:40 1.0 % (0.0-4.3) 02/13/19 05:40 1.0 % (0.0-1.8) 02/13/19 05:40 0 % 02/13/19 05:40 0 % 02/13/19 05:40 0 % 02/13/19 05:40 0 % 02/13/19 05:40 Nucleated RBC % Not Reportable 02/13/19 05:40 Seg Neutrophils # 11.5 K/mm3 (1.8-7.7) H 02/13/19 23:18 Seg Neutrophils # Man 3.3 K/mm3 (1.8-7.7) 02/13/19 05:40 Band Neutrophils # 0.0 K/mm3 02/13/19 05:40 0.6 K/mm3 (1.2-5.4) L 02/13/19 05:40 Abs React Lymphs (Man) 0.0 K/mm3 02/13/19 05:40 0.6 K/mm3 (0.0-0.8) 02/13/19 05:40 0.0 K/mm3 (0.0-0.4) 02/13/19 05:40 0.0 K/mm3 (0.0-0.1) 02/13/19 05:40 0.0 K/mm3 02/13/19 05:40 0.0 K/mm3 02/13/19 05:40 0.0 K/mm3 02/13/19 05:40 Blast Cells # 0.0 K/mm3 02/13/19 05:40 WBC Morphology Not Reportable 02/13/19 05:40 Hypersegmented Neuts Not Reportable 02/13/19 05:40 Hyposegmented Neuts Not Reportable 02/13/19 05:40 Hypogranular Neuts Not Reportable 02/13/19 05:40 Not Reportable 02/13/19 05:40 Not Reportable 02/13/19 05:40 Not Reportable 02/13/19 05:40 Not Reportable 02/13/19 05:40 Not Reportable 02/13/19 05:40 Not Reportable 02/13/19 05:40 Consistent w auto 02/13/19 05:40 Not Reportable 02/13/19 05:40 Plt Clumps, EDTA Not Reportable 02/13/19 05:40 Rare 02/13/19 05:40 Not Reportable 02/13/19 05:40 Not Reportable 02/13/19 05:40 Plt Morphology Comment Not Reportable 02/13/19 05:40 RBC Morphology Not Reportable 02/13/19 05:40 Dimorphic RBCs Not Reportable 02/13/19 05:40 Not Reportable 02/13/19 05:40 Not Reportable 02/13/19 05:40 Not Reportable 02/13/19 05:40 Few 02/13/19 05:40 Not Reportable 02/13/19 05:40 Not Reportable 02/13/19 05:40 Not Reportable 02/13/19 05:40 Not Reportable 02/13/19 05:40 Not Reportable 02/13/19 05:40 Not Reportable 02/13/19 05:40 Not Reportable 02/13/19 05:40 Not Reportable 02/13/19 05:40 Not Reportable 02/13/19 05:40 Not Reportable 02/13/19 05:40 Not Reportable 02/13/19 05:40 Not Reportable 02/13/19 05:40 Not Reportable 02/13/19 05:40 Not Reportable 02/13/19 05:40 Not Reportable 02/13/19 05:40 Acanthocytes (Spur) Not Reportable 02/13/19 05:40 Rouleaux Not Reportable 02/13/19 05:40 Not Reportable 02/13/19 05:40 Not Reportable 02/13/19 05:40 Not Reportable 02/13/19 05:40 Not Reportable 02/13/19 05:40 Hem Pathologist Commnt No 02/13/19 05:40 PT 17.0 Sec. (12.2-14.9) H 02/12/19 20:14 INR 1.42 (0.87-1.13) H 02/12/19 20:14 APTT > 240.0 Sec. (24.2-36.6) H* 02/12/19 20:14 Heparin Anti-Xa Level 0.10 U.I./ml (0.3-0.7) L 02/13/19 14:49 Sodium 133 mmol/L (137-145) L 02/14/19 05:01 Potassium 6.4 mmol/L (3.6-5.0) H* D 02/14/19 05:01 Chloride 97.6 mmol/L (98-107) L 02/14/19 05:01 Carbon Dioxide 21 mmol/L (22-30) L 02/14/19 05:01 21 mmol/L 02/14/19 05:01 BUN 21 mg/dL (9-20) H 02/14/19 05:01 2.6 mg/dL (0.8-1.5) H D 02/14/19 05:01 Estimated GFR 30 ml/min 02/14/19 05:01 8 % 02/14/19 05:01 Glucose 213 mg/dL (75-100) H 02/14/19 05:01 POC Glucose 192 (70-105) H 02/13/19 22:28 7.0 % (4-6) H 02/12/19 02:04 Lactic Acid 1.70 mmol/L (0.7-2.0) 02/13/19 23:18 Calcium 9.3 mg/dL (8.4-10.2) 02/14/19 05:01 Magnesium 1.90 mg/dL (1.7-2.3) 02/11/19 13:32 0.60 mg/dL (0.1-1.2) 02/13/19 05:40 AST 14 units/L (5-40) 02/13/19 05:40 ALT 15 units/L (7-56) 02/13/19 05:40 100 units/L (35-129) 02/13/19 05:40 < 0.010 ng/mL (0.00-0.029) 02/11/19 15:44 7.7 g/dL (6.3-8.2) 02/13/19 05:40 4.3 g/dL (3.9-5) 02/13/19 05:40 1.3 % 02/13/19 05:40 TSH 1.040 mlU/mL (0.270-4.200) 02/11/19 13:32 Yellow (Yellow) 02/11/19 Unknown Clear (Clear) 02/11/19 Unknown 6.0 (5.0-7.0) 02/11/19 Unknown Ur Specific [place] 1.013 (1.003-1.030) 02/11/19 Unknown <15 mg/dl mg/dL (Negative) 02/11/19 Unknown >=500 mg/dL (Negative) 02/11/19 Unknown 20 mg/dL (Negative) 02/11/19 Unknown Neg (Negative) 02/11/19 Unknown Neg (Negative) 02/11/19 Unknown Neg (Negative) 02/11/19 Unknown < 2.0 mg/dL (<2.0) 02/11/19 Unknown Ur Leukocyte Esterase Neg (Negative) 02/11/19 Unknown < 1.0 /HPF (0.0-6.0) 02/11/19 Unknown 2.0 /HPF (0.0-6.0) 02/11/19 Unknown Few /HPF 02/11/19 Unknown Active Medications - Current Medications Current Medications: Generic Name Dose Route Start Last Admin Trade Name Freq PRN Reason Stop Dose Admin Acetaminophen 650 mg 02/12/19 00:03 02/13/19 20:09 Tylenol PO 650 mg Q4H PRN Administration Pain MILD(1-3)/Fever >100.5/DORSEY Aspirin 81 mg 02/12/19 10:00 02/13/19 16:51 Baby Aspirin PO 81 mg DAILY [facility] Administration Atorvastatin Calcium 80 mg 02/12/19 22:00 02/13/19 22:03 Lipitor PO 80 mg QHS [facility] Administration Carvedilol 12.5 mg 02/12/19 17:00 02/13/19 22:02 Coreg PO 12.5 mg BID [facility] Administration Dextrose 25 gm 02/14/19 07:39 D50w (25gm) Vial IV 02/14/19 07:40 ONCE STA Famotidine 20 mg 02/12/19 01:00 02/13/19 22:03 Pepcid PO 20 mg BID [facility] Administration Furosemide 80 mg 02/12/19 00:02 Lasix PO QDAY PRN Edema Glipizide 10 mg 02/12/19 01:00 02/13/19 22:03 Glucotrol PO 10 mg BID [facility] Administration Hydromorphone HCl 0.5 mg 02/12/19 00:03 Dilaudid IV Q3H PRN Pain , Severe (7-10) Heparin Sodium/Sodium Chloride 25,000 unit in 500 mls @ 24 mls/hr 02/12/19 17:00 02/13/19 07:09 Heparin/ 0.45% Nacl-25,000 Unit/500 Ml IV 1,050 units/hr TITR [facility] 21 mls/hr Titration Protocol 1,200 UNITS/HR Ceftriaxone Sodium 1 gm in 50 mls @ 100 mls/hr 02/14/19 12:53 02/14/19 01:10 Rocephin/Ns 1 Gm/50 Ml IV 100 mls/hr Q24HR@2200 [facility] Administration Protocol Calcium Gluconate 1,000 mg/ 110 mls @ 660 mls/hr 02/14/19 07:38 Sodium Chloride IV 02/14/19 07:47 ONCE STA Insulin Human Lispro 0 unit 02/12/19 22:00 02/13/19 22:43 Humalog SUB-Q 2 unit QHS [facility] Administration Protocol Insulin Human Regular 10 units 02/14/19 07:38 Humulin R IV 02/14/19 07:39 ONCE STA Levothyroxine Sodium 125 mcg 02/12/19 06:00 02/14/19 05:34 Synthroid PO 125 mcg QAM@0600 [facility] Administration Miscellaneous Medication 25 mg 02/12/19 10:00 Alogliptin Benzoate [Alogliptin] PO QDAY [facility] Miscellaneous Medication 10 mg 02/12/19 10:00 Dapagliflozin Propanediol [Farxiga] PO QDAY [facility] Multivitamins 1 each 02/12/19 10:00 02/13/19 16:51 Theragran Tab PO 1 each QDAY [facility] Administration Ondansetron HCl 4 mg 02/12/19 00:03 Zofran IV Q8H PRN Nausea And Vomiting Oxycodone/Acetaminophen 1 tab 02/12/19 00:03 02/13/19 22:01 Percocet 5/325 PO 1 tab Q6H PRN Administration Pain, Moderate (4-6) Sodium Chloride 10 ml 02/12/19 10:00 02/13/19 22:03 Sodium Chloride Flush Syringe 10 Ml IV 10 ml BID [facility] Administration Sodium Chloride 10 ml 02/12/19 00:03 02/14/19 01:11 Sodium Chloride Flush Syringe 10 Ml IV 10 ml PRN PRN Administration LINE FLUSH Sodium Polystyrene Sulfonate 30 gm 02/14/19 08:00 Kionex PO 02/14/19 14:01 Q6H [facility] Spironolactone 25 mg 02/12/19 10:00 02/13/19 16:51 Aldactone PO 25 mg QDAY [facility] Administration
[2019-02-14] MEDS ORDERED: D50W (25GM) Syringe IV ONE (08:00)
[2019-02-14 09:15] LABS: Hematocrit 46.6 % (35.5-45.6); Hemoglobin 15.4 gm/dl (11.8-15.2); Mean Corpuscular HGB Conc 33 % (32-34); Mean Corpuscular Volume 88 fl (84-94); Platelet Count 207 K/mm3 (140-440); Red Blood Count 5.27 M/mm3 (3.65-5.03); Red Cell Distribution Width 14.5 % (13.2-15.2)
[2019-02-14 09:33] LABS: Calcium 9.5 mg/dL (8.4-10.2)
[2019-02-14] MEDS: THERAGRAN Tab PO SCH (09:46)
[2019-02-14] MEDS: GLUCOTROL PO SCH ×2 (09:46→21:14)
[2019-02-14] MEDS: BABY ASPIRIN PO SCH (09:46)
[2019-02-14] MEDS: PEPCID PO SCH ×2 (09:47→21:14)
--- NOTE | 2019-02-14 09:55 | Progress Note ---
Assessment and Plan Assessment and plan: New onset Atrial fibrillation with RVR Patient was having colonoscopy when developed palptations,diahgnosed with new onset afib Admitted Cardiology following Coreg for rate control Echo EF 15-20% AUGUSTINA attempted but probe could not be passed down, so not done Cardiology recommended dc home yesterday 02/13, orders put in but he had more palpitations ventricular rate 110 so not discharged. Ordered Cardizem 20mg iv X 1 Hypotension today, most recent /50 give NS bolus 500ml X 1 If BP remains low, may need presor MARIE due to ATN Cr 2.6 today, repeated May be due to hypotension, his Cr was normal yesterday D/c Aldactone, dc Lisinopril Consult Nephrology Give NS Hyperkalemia Give kayexalate, insulin History of Hypertension Monitor BP Diabetes mellitus type 2 Fingerstick qac and hs Hypothyroidism Non-ischemic cardiomyopathy Chronic systolic CHF Coreg, Aldactone Full code status History Interval history: Patient was having colonoscopy developed rapid afib, Was about to be discharged yesterday 02/13, but has palpitations ventricular rate 110s so discharge cancelled Fever last night Feeling weak Hospitalist Physical - Physical exam Narrative exam: Gen: Not in acute distress, lying in bed, HEENT: Normocephalic, atraumatic Neck: supple, no JVD Heart: S1 and S2 irreg,no murmurs, rubs or gallop Lungs: Clear, no crackles or wheeze Abd: soft, non tender, non distended, normal BS Ext:no edema, no clubbing, no cyanosis Neuro: Awake,alert,oriented X 3,moves all ext Psych:Normal mood - Constitutional Vitals: Temp Pulse Resp BP Pulse Ox 97.5 F L 66 16 83/50 94 02/14/19 07:48 02/14/19 04:35 02/14/19 07:48 02/14/19 07:48 02/14/19 04:35 General appearance: Present: no acute distress Results - Labs CBC & Chem 7: 02/14/19 08:57 02/14/19 08:57 Labs: Laboratory Last Values WBC 15.5 K/mm3 (4.5-11.0) H 02/14/19 08:57 RBC 5.27 M/mm3 (3.65-5.03) H 02/14/19 08:57 Hgb 15.4 gm/dl (11.8-15.2) H 02/14/19 08:57 Hct 46.6 % (35.5-45.6) H 02/14/19 08:57 MCV 88 fl (84-94) 02/14/19 08:57 MCH 29 pg (28-32) 02/14/19 08:57 MCHC 33 % (32-34) 02/14/19 08:57 RDW 14.5 % (13.2-15.2) 02/14/19 08:57 Plt Count 207 K/mm3 (140-440) 02/14/19 08:57 Lymph % (Auto) 4.1 % (13.4-35.0) L 02/13/19 23:18 Rains % (Auto) 5.8 % (0.0-7.3) 02/13/19 23:18 Eos % (Auto) 0.0 % (0.0-4.3) 02/13/19 23:18 Baso % (Auto) 0.5 % (0.0-1.8) 02/13/19 23:18 Lymph # 0.5 K/mm3 (1.2-5.4) L 02/13/19 23:18 Rains # 0.7 K/mm3 (0.0-0.8) 02/13/19 23:18 Eos # 0.0 K/mm3 (0.0-0.4) 02/13/19 23:18 Baso # 0.1 K/mm3 (0.0-0.1) 02/13/19 23:18 Add Manual Diff Complete 02/13/19 05:40 Total Counted 100 02/13/19 05:40 Seg Neutrophils % 89.6 % (40.0-70.0) H 02/13/19 23:18 Seg Neuts % (Manual) 72.0 % (40.0-70.0) H 02/13/19 05:40 0 % 02/13/19 05:40 14.0 % (13.4-35.0) 02/13/19 05:40 Reactive Lymphs % (Man) 0 % 02/13/19 05:40 12.0 % (0.0-7.3) H 02/13/19 05:40 1.0 % (0.0-4.3) 02/13/19 05:40 1.0 % (0.0-1.8) 02/13/19 05:40 0 % 02/13/19 05:40 0 % 02/13/19 05:40 0 % 02/13/19 05:40 0 % 02/13/19 05:40 Nucleated RBC % Not Reportable 02/13/19 05:40 Seg Neutrophils # 11.5 K/mm3 (1.8-7.7) H 02/13/19 23:18 Seg Neutrophils # Man 3.3 K/mm3 (1.8-7.7) 02/13/19 05:40 Band Neutrophils # 0.0 K/mm3 02/13/19 05:40 0.6 K/mm3 (1.2-5.4) L 02/13/19 05:40 Abs React Lymphs (Man) 0.0 K/mm3 02/13/19 05:40 0.6 K/mm3 (0.0-0.8) 02/13/19 05:40 0.0 K/mm3 (0.0-0.4) 02/13/19 05:40 0.0 K/mm3 (0.0-0.1) 02/13/19 05:40 0.0 K/mm3 02/13/19 05:40 0.0 K/mm3 02/13/19 05:40 0.0 K/mm3 02/13/19 05:40 Blast Cells # 0.0 K/mm3 02/13/19 05:40 WBC Morphology Not Reportable 02/13/19 05:40 Hypersegmented Neuts Not Reportable 02/13/19 05:40 Hyposegmented Neuts Not Reportable 02/13/19 05:40 Hypogranular Neuts Not Reportable 02/13/19 05:40 Not Reportable 02/13/19 05:40 Not Reportable 02/13/19 05:40 Not Reportable 02/13/19 05:40 Not Reportable 02/13/19 05:40 Not Reportable 02/13/19 05:40 Not Reportable 02/13/19 05:40 Consistent w auto 02/13/19 05:40 Not Reportable 02/13/19 05:40 Plt Clumps, EDTA Not Reportable 02/13/19 05:40 Rare 02/13/19 05:40 Not Reportable 02/13/19 05:40 Not Reportable 02/13/19 05:40 Plt Morphology Comment Not Reportable 02/13/19 05:40 RBC Morphology Not Reportable 02/13/19 05:40 Dimorphic RBCs Not Reportable 02/13/19 05:40 Not Reportable 02/13/19 05:40 Not Reportable 02/13/19 05:40 Not Reportable 02/13/19 05:40 Few 02/13/19 05:40 Not Reportable 02/13/19 05:40 Not Reportable 02/13/19 05:40 Not Reportable 02/13/19 05:40 Not Reportable 02/13/19 05:40 Not Reportable 02/13/19 05:40 Not Reportable 02/13/19 05:40 Not Reportable 02/13/19 05:40 Not Reportable 02/13/19 05:40 Not Reportable 02/13/19 05:40 Not Reportable 02/13/19 05:40 Not Reportable 02/13/19 05:40 Not Reportable 02/13/19 05:40 Not Reportable 02/13/19 05:40 Not Reportable 02/13/19 05:40 Not Reportable 02/13/19 05:40 Acanthocytes (Spur) Not Reportable 02/13/19 05:40 Rouleaux Not Reportable 02/13/19 05:40 Not Reportable 02/13/19 05:40 Not Reportable 02/13/19 05:40 Not Reportable 02/13/19 05:40 Not Reportable 02/13/19 05:40 Hem Pathologist Commnt No 02/13/19 05:40 PT 17.0 Sec. (12.2-14.9) H 02/12/19 20:14 INR 1.42 (0.87-1.13) H 02/12/19 20:14 APTT > 240.0 Sec. (24.2-36.6) H* 02/12/19 20:14 Heparin Anti-Xa Level 0.10 U.I./ml (0.3-0.7) L 02/13/19 14:49 Sodium 133 mmol/L (137-145) L 02/14/19 08:57 Potassium 5.2 mmol/L (3.6-5.0) H 02/14/19 08:57 Chloride 95.8 mmol/L (98-107) L 02/14/19 08:57 Carbon Dioxide 23 mmol/L (22-30) 02/14/19 08:57 19 mmol/L 02/14/19 08:57 BUN 25 mg/dL (9-20) H 02/14/19 08:57 2.6 mg/dL (0.8-1.5) H 02/14/19 08:57 Estimated GFR 30 ml/min 02/14/19 08:57 10 % 02/14/19 08:57 Glucose 202 mg/dL (75-100) H 02/14/19 08:57 POC Glucose 192 (70-105) H 02/13/19 22:28 7.0 % (4-6) H 02/12/19 02:04 Lactic Acid 1.70 mmol/L (0.7-2.0) 02/13/19 23:18 Calcium 9.5 mg/dL (8.4-10.2) 02/14/19 08:57 Magnesium 1.90 mg/dL (1.7-2.3) 02/11/19 13:32 0.60 mg/dL (0.1-1.2) 02/13/19 05:40 AST 14 units/L (5-40) 02/13/19 05:40 ALT 15 units/L (7-56) 02/13/19 05:40 100 units/L (35-129) 02/13/19 05:40 < 0.010 ng/mL (0.00-0.029) 02/11/19 15:44 7.7 g/dL (6.3-8.2) 02/13/19 05:40 4.3 g/dL (3.9-5) 02/13/19 05:40 1.3 % 02/13/19 05:40 TSH 1.040 mlU/mL (0.270-4.200) 02/11/19 13:32 Yellow (Yellow) 02/11/19 Unknown Clear (Clear) 02/11/19 Unknown 6.0 (5.0-7.0) 02/11/19 Unknown Ur Specific Grace 1.013 (1.003-1.030) 02/11/19 Unknown <15 mg/dl mg/dL (Negative) 02/11/19 Unknown >=500 mg/dL (Negative) 02/11/19 Unknown 20 mg/dL (Negative) 02/11/19 Unknown Neg (Negative) 02/11/19 Unknown Neg (Negative) 02/11/19 Unknown Neg (Negative) 02/11/19 Unknown < 2.0 mg/dL (<2.0) 02/11/19 Unknown Ur Leukocyte Esterase Neg (Negative) 02/11/19 Unknown < 1.0 /HPF (0.0-6.0) 02/11/19 Unknown 2.0 /HPF (0.0-6.0) 02/11/19 Unknown Few /HPF 02/11/19 Unknown Active Medications - Current Medications Current Medications: Generic Name Dose Route Start Last Admin Trade Name Freq PRN Reason Stop Dose Admin Acetaminophen 650 mg 02/12/19 00:03 02/13/19 20:09 Tylenol PO 650 mg Q4H PRN Administration Pain MILD(1-3)/Fever >100.5/DORSEY Aspirin 81 mg 02/12/19 10:00 02/14/19 09:46 Baby Aspirin PO 81 mg DAILY ELIZABETH Administration Atorvastatin Calcium 80 mg 02/12/19 22:00 02/13/19 22:03 Lipitor PO 80 mg QHS ELIZABETH Administration Famotidine 20 mg 02/12/19 01:00 02/14/19 09:47 Pepcid PO 20 mg BID ELIZABETH Administration Glipizide 10 mg 02/12/19 01:00 02/14/19 09:46 Glucotrol PO 10 mg BID ELIZABETH Administration Hydromorphone HCl 0.5 mg 02/12/19 00:03 Dilaudid IV Q3H PRN Pain , Severe (7-10) Heparin Sodium/Sodium Chloride 25,000 unit in 500 mls @ 24 mls/hr 02/12/19 17:00 02/13/19 07:09 Heparin/ 0.45% Nacl-25,000 Unit/500 Ml IV 1,050 units/hr TITR ELIZABETH 21 mls/hr Titration Protocol 1,200 UNITS/HR Ceftriaxone Sodium 1 gm in 50 mls @ 100 mls/hr 02/14/19 12:53 02/14/19 01:10 Rocephin/Ns 1 Gm/50 Ml IV 100 mls/hr Q24HR@2200 [facility] Administration Protocol Sodium Chloride 1,000 mls @ 100 mls/hr 02/14/19 10:00 Nacl 0.9% 1000 Ml IV DIRECT ELIZABETH Sodium Chloride 500 mls @ 999 mls/hr 02/14/19 10:00 Nacl 0.9% 500 Ml IV 02/14/19 10:30 ONCE ONE Insulin Human Lispro 0 unit 02/12/19 22:00 02/13/19 22:43 Humalog SUB-Q 2 unit QHS [facility] Administration Protocol Levothyroxine Sodium 125 mcg 02/12/19 06:00 02/14/19 05:34 Synthroid PO 125 mcg QAM@0600 [facility] Administration Miscellaneous Medication 25 mg 02/12/19 10:00 Alogliptin Benzoate [Alogliptin] PO QDAY [facility] Miscellaneous Medication 10 mg 02/12/19 10:00 Dapagliflozin Propanediol [Farxiga] PO QDAY [facility] Multivitamins 1 each 02/12/19 10:00 02/14/19 09:46 Theragran Tab PO 1 each QDAY [facility] Administration Ondansetron HCl 4 mg 02/12/19 00:03 Zofran IV Q8H PRN Nausea And Vomiting Oxycodone/Acetaminophen 1 tab 02/12/19 00:03 02/13/19 22:01 Percocet 5/325 PO 1 tab Q6H PRN Administration Pain, Moderate (4-6) Sodium Chloride 10 ml 02/12/19 10:00 02/13/19 22:03 Sodium Chloride Flush Syringe 10 Ml IV 10 ml BID ELIZABETH Administration Sodium Chloride 10 ml 02/12/19 00:03 02/14/19 01:11 Sodium Chloride Flush Syringe 10 Ml IV 10 ml PRN PRN Administration LINE FLUSH Sodium Polystyrene Sulfonate 30 gm 02/14/19 08:00 Kionex PO 02/14/19 14:01 Q6H [facility]
[2019-02-14] MEDS ORDERED: NACL 0.9% 500 ML 500 ML IV ONE (10:00)
[2019-02-14] MEDS ORDERED: ROCEPHIN/NS 1 GM/50 ML 1 GM/50 ML BAG IV SCH (10:00)
[2019-02-14] MEDS: NACL 0.9% 1000 ML 1,000 ML IV SCH ×2 (10:51→21:12)
--- NOTE | 2019-02-14 10:51 | XRay Report ---
CHEST 1 VIEW INDICATION / CLINICAL INFORMATION: CHF, hypotension. COMPARISON: 02/11/2019 FINDINGS: SUPPORT DEVICES: None. HEART / MEDIASTINUM: Normal size with evidence of median sternotomy. LUNGS / PLEURA: There is slight midlung atelectasis now seen. Lungs are otherwise clear with no infil trate, edema or effusion. No pneumothorax. ADDITIONAL FINDINGS: No significant additional findings. IMPRESSION: 1. No substantial change. Signer Name: Dakota James MD Signed: 02/14/2019 10:46 AM Workstation Name: [id number]
[2019-02-14] MEDS: KIONEX PO SCH ×2 (12:03→16:48)
[2019-02-14] MEDS: SODIUM CHLORIDE FLUSH SYRINGE 10 ML IV SCH ×2 (12:04→21:15)
--- NOTE | 2019-02-14 12:20 | Progress Note ---
Assessment and Plan Initiate IVF. Sepsis w/u. - Patient Problems (1) Sepsis with hypotension Current Visit: Yes Status: Acute (2) New onset a-fib Current Visit: Yes Status: Acute (3) NICM (nonischemic cardiomyopathy) Current Visit: Yes Status: Chronic (4) HTN (hypertension) Current Visit: Yes Status: Chronic (5) Diabetes Current Visit: Yes Status: Chronic Qualifiers: Diabetes mellitus type: type 2 (6) Hypothyroidism Current Visit: Yes Status: Chronic Subjective Date of service: 02/14/19 Principal diagnosis: AF, NICMP, HTN, DM Interval history: Apparently developed fever with hypotension overnight. No complaint this am. Objective Vital Signs Temp Temp Pulse Pulse Pulse Resp Resp 02/14/19 07:48 97.5 F L 16 02/14/19 04:35 97.9 F 66 18 02/14/19 04:31 02/13/19 23:45 98.4 F 75 18 02/13/19 23:01 18 02/13/19 22:02 89 02/13/19 22:01 20 02/13/19 21:19 89 02/13/19 21:11 101.4 F H 02/13/19 20:23 100.8 F H 89 20 02/13/19 20:21 101.0 F H 89 20 02/13/19 20:09 20 02/13/19 19:51 101.1 F H 133 H 20 02/13/19 17:07 94 H 02/13/19 13:45 85 21 02/13/19 13:30 89 19 02/13/19 13:15 87 16 02/13/19 13:00 68 14 02/13/19 12:44 97.4 F L 87 25 H 02/13/19 12:24 80 Last Vital Signs Temp 97.5 F L 02/14/19 07:48 Pulse 66 02/14/19 04:35 Resp 16 02/14/19 07:48 BP 83/50 02/14/19 07:48 Pulse Ox 94 02/14/19 04:35 - Physical Examination General: No Apparent Distress HEENT: Positive: PERRL, Normocephaly, Mucus Membranes Moist Neck: Positive: neck supple, trachea midline Cardiac: Positive: irregularly irregular, S1/S2 Lungs: Positive: clear to auscultation Neuro: Positive: Grossly Intact Abdomen: Positive: Soft, Active Bowel Sounds. Negative: Tender Skin: Negative: Rash Musculoskeletal: Normal Range of Motion Extremities: Absent: edema - Labs and Meds CBC 02/13/19 02/14/19 02/14/19 Range/Units 23:18 05:01 08:57 WBC 12.8 H 16.1 H 15.5 H (4.5-11.0) K/mm3 RBC 5.33 H 5.21 H 5.27 H (3.65-5.03) M/mm3 Hgb 15.6 H 15.2 15.4 H (11.8-15.2) gm/dl Hct 47.1 H 46.1 H 46.6 H (35.5-45.6) % Plt Count 204 220 207 (140-440) K/mm3 Lymph # 0.5 L (1.2-5.4) K/mm3 [place]rick # 0.7 (0.0-0.8) K/mm3 Eos # 0.0 (0.0-0.4) K/mm3 Baso # 0.1 (0.0-0.1) K/mm3 Comprehensive Metabolic Panel 02/14/19 02/14/19 Range/Units 05:01 08:57 Sodium 133 L 133 L (137-145) mmol/L Potassium 6.4 H* D 5.2 H (3.6-5.0) mmol/L Chloride 97.6 L 95.8 L (98-107) mmol/L Carbon Dioxide 21 L 23 (22-30) mmol/L BUN 21 H 25 H (9-20) mg/dL Creatinine 2.6 H D 2.6 H (0.8-1.5) mg/dL Glucose 213 H 202 H (75-100) mg/dL Calcium 9.3 9.5 (8.4-10.2) mg/dL - Telemetry EKG Rhythm: Atrial Fibrillation
--- NOTE | 2019-02-14 12:41 | Consultation ---
History of Present Illness - Reason for Consult Consult date: 02/14/19 acute renal failure, hyperkalemia Requesting physician: AYAN ENG - History of Present Illness Patient was admitted to have a colonoscopy done. However he developed atrial fibrillation with rapid ventricular response. His serum creatinine was found to be 1.2 on admission. However it shot up to 2.6 and he became hyperkalemic and therefore this consultation. Patient denies any prior knowledge of renal dysfunction. He does take some nonsteroidal at home at times. He also does have some nocturia and wakes up several times at night to urinate Past History Past Medical History: diabetes, GERD, heart failure, hypertension, hypothyroidism Past Surgical History: thyroidectomy Social history: denies: smoking, alcohol abuse, prescription drug abuse Medications and Allergies Allergies Allergy/AdvReac Type Severity Reaction Status Date / Time No Known Allergies Allergy Verified 02/11/19 13:01 Home Medications Medication Instructions Recorded Confirmed Last Taken Type Aspirin [Aspirin BABY CHEW TAB] 81 mg PO DAILY 09/02/13 02/11/19 02/07/19 History Alogliptin Benzoate [Alogliptin] 25 mg PO QDAY 02/11/19 02/11/19 Unknown History AtorvaSTATin [Lipitor] 80 mg PO QHS 02/11/19 02/11/19 Unknown History Dapagliflozin Propanediol [Farxiga] 10 mg PO QDAY 02/11/19 02/11/19 Unknown History Furosemide [Lasix TAB] 80 mg PO QDAY PRN 02/11/19 02/11/19 Unknown History Levothyroxine [Synthroid] 125 mcg PO QAM 02/11/19 02/11/19 Unknown History Lisinopril [Zestril TAB] 10 mg PO QDAY 02/11/19 02/11/19 02/11/19 History Multivitamin Tab [Multiple Vitamin 1 each PO QDAY 02/11/19 02/11/19 Unknown History TAB (Theragran)] Spironolactone [Aldactone] 25 mg PO QDAY 02/11/19 02/11/19 Unknown History glipiZIDE [Glucotrol] 10 mg PO BID 02/11/19 02/11/19 Unknown History Apixaban [Eliquis] 5 mg PO BID #60 tablet 02/13/19 Unknown Rx Carvedilol [Coreg] 12.5 mg PO BID #60 tablet 02/13/19 Unknown Rx Famotidine [Pepcid] 20 mg PO BID #60 tablet 02/13/19 Unknown Rx Active Meds: Active Medications Acetaminophen (Tylenol) 650 mg PO Q4H PRN PRN Reason: Pain MILD(1-3)/Fever >100.5/DORSEY Last Admin: 02/13/19 20:09 Dose: 650 mg Documented by: Aspirin (Baby Aspirin) 81 mg PO DAILY [facility] Last Admin: 02/14/19 09:46 Dose: 81 mg Documented by: Atorvastatin Calcium (Lipitor) 80 mg PO QHS [facility] Last Admin: 02/13/19 22:03 Dose: 80 mg Documented by: Famotidine (Pepcid) 20 mg PO BID [facility] Last Admin: 02/14/19 09:47 Dose: 20 mg Documented by: Glipizide (Glucotrol) 10 mg PO BID [facility] Last Admin: 02/14/19 09:46 Dose: 10 mg Documented by: Hydromorphone HCl (Dilaudid) 0.5 mg IV Q3H PRN PRN Reason: Pain , Severe (7-10) Heparin Sodium/Sodium Chloride (Heparin/ 0.45% Nacl-25,000 Unit/500 Ml) 25,000 unit in 500 mls @ 24 mls/hr IV TITR [facility]; Protocol Last Titration: 02/13/19 07:09 Dose: 1,050 units/hr, 21 mls/hr Documented by: Ceftriaxone Sodium (Rocephin/Ns 1 Gm/50 Ml) 1 gm in 50 mls @ 100 mls/hr IV Q24HR@2200 [facility]; Protocol Last Admin: 02/14/19 01:10 Dose: 100 mls/hr Documented by: Sodium Chloride (Nacl 0.9% 1000 Ml) 1,000 mls @ 100 mls/hr IV DIRECT [facility] Last Admin: 02/14/19 10:51 Dose: 100 mls/hr Documented by: Insulin Human Lispro (Humalog) 0 unit SUB-Q QHS [facility]; Protocol Last Admin: 02/13/19 22:43 Dose: 2 unit Documented by: Levothyroxine Sodium (Synthroid) 125 mcg PO QAM@0600 [facility] Last Admin: 02/14/19 05:34 Dose: 125 mcg Documented by: Miscellaneous Medication (Alogliptin Benzoate [Alogliptin]) 25 mg PO QDAY [facility] Miscellaneous Medication (Dapagliflozin Propanediol [Farxiga]) 10 mg PO QDAY [facility] Multivitamins (Theragran Tab) 1 each PO QDAY [facility] Last Admin: 02/14/19 09:46 Dose: 1 each Documented by: Ondansetron HCl (Zofran) 4 mg IV Q8H PRN PRN Reason: Nausea And Vomiting Oxycodone/Acetaminophen (Percocet 5/325) 1 tab PO Q6H PRN PRN Reason: Pain, Moderate (4-6) Last Admin: 02/13/19 22:01 Dose: 1 tab Documented by: Sodium Chloride (Sodium Chloride Flush Syringe 10 Ml) 10 ml IV BID [facility] Last Admin: 02/14/19 12:04 Dose: Not Given Documented by: Sodium Chloride (Sodium Chloride Flush Syringe 10 Ml) 10 ml IV PRN PRN PRN Reason: LINE FLUSH Last Admin: 02/14/19 01:11 Dose: 10 ml Documented by: Sodium Polystyrene Sulfonate (Kionex) 30 gm PO Q6H [facility] Stop: 02/14/19 14:01 Last Admin: 02/14/19 12:03 Dose: Not Given Documented by: Review of Systems All systems: negative (negative except as noted above) Exam - Vital Signs Vital signs: Vital Signs Temp Pulse Resp BP Pulse Ox 97.9 F 79 13 134/83 100 02/11/19 12:57 02/11/19 12:57 02/11/19 12:57 02/11/19 12:57 02/11/19 12:57 - General Appearance General appearance: well-developed, well-nourished, appears stated age EENT: PERRL, mucous membranes moist Neck: Present: neck supple, trachea midline. Absent: JVD/HJR, Masses Respiratory: Clear to Ascultation Heart: irregular Gastrointestinal: Present: normal, normoactive bowel sounds Integumentary: no rash, other (no edema) Results - Lab Results 02/14/19 08:57 02/14/19 08:57 Most recent lab results Calcium 9.5 mg/dL (8.4-10.2) 02/14/19 08:57 Magnesium 1.90 mg/dL (1.7-2.3) 02/11/19 13:32 Assessment and Plan Impression * Acute kidney injury * Hyperkalemia * Atrial fibrillation with rapid ventricular response * History of congestive heart failure * Hypertension * Diabetes * Nocturia Recommendations * Etiology of his acute kidney injury most likely secondary to ATN. His serum creatinine was 1.2 at admission * Check a UA as well as a fractional excretion of sodium * Renal ultrasound to assess kidney size and echogenicity. Check postvoid residual as well * Vasculitis workup also * Avoid nephrotoxins * Monitor fluid status and electrolytes closely * Continue IV hydration * Hold diuretics for now * Thank you very much for the consultation. Shall follow along with you
[2019-02-14 14:03] LABS: Bilirubin,Urine NEG (Negative); Blood,Urine NEG (Negative); Color,Urine Amber (Yellow); Mucus,Urine 1+ /HPF; Urobilinogen,Urine < 2.0 mg/dL (<2.0)
[2019-02-14 14:04] LABS: Creatinine,Urine 303.2 mg/dL (0.1-20.0)
[2019-02-14 14:32] LABS: Calcium 9.9 mg/dL (8.4-10.2)
[2019-02-14 14:45] LABS: Hepatitis C Virus Antibody Non-Reactive (NonReactive)
[2019-02-14 15:16] LABS: Hepatitis B Surface Antigen Non-Reactive (Negative)
--- NOTE | 2019-02-14 17:10 | Ultrasound Report ---
ULTRASOUND RENAL INDICATION: MARIE. COMPARISON: No relevant prior imaging study available. FINDINGS: RIGHT KIDNEY: Size: 9.7 cm. Echogenicity: Normal. Cortical thickness: Normal. Hydronephrosis: None. Cyst or mass: None. Stones: None. LEFT KIDNEY: Size: 11.6 cm. Echogenicity: Normal. Cortical thickness: Normal. Hydronephrosis: None. Cyst or mass: None. Stones: None. Urinary Bladder: No significant abnormality. Free Fluid: None. Additional Findings: There may be small nonobstructing renal calculi. There also may be a complex mas s in the prostate gland measuring 1.8 x 1.7 x 1.6 cm.. IMPRESSION 1. No obstruction or significant atrophy.. Signer Name: Dakota James MD Signed: 02/14/2019 5:06 PM Workstation Name: [id number]
--- NOTE | 2019-02-14 17:11 | Ultrasound Report ---
Ultrasound the bladder INDICATION: Urinary retention FINDINGS: Prevoid bladder volume is 77 mL with postvoid volume of 22 mL. Signer Name: Dakota James MD Signed: 02/14/2019 5:07 PM Workstation Name: [id number]
[2019-02-14] MEDS: PERCOCET 5/325 PO PRN (21:13)
[2019-02-14] MEDS: HumaLOG SUB-Q SCH (21:47)
[2019-02-15 04:42] LABS: Hematocrit 43.1 % (35.5-45.6); Hemoglobin 14.5 gm/dl (11.8-15.2); Mean Corpuscular HGB Conc 34 % (32-34); Mean Corpuscular Volume 89 fl (84-94); Platelet Count 196 K/mm3 (140-440); Red Blood Count 4.87 M/mm3 (3.65-5.03); Red Cell Distribution Width 14.5 % (13.2-15.2)
[2019-02-15 05:05] LABS: BUN/Creatinine Ratio 14; Blood Urea Nitrogen 19 mg/dL (9-20); Calcium 9.2 mg/dL (8.4-10.2); Hemolysis Index 0
[2019-02-15] MEDS: SYNTHROID PO SCH (06:05)
[2019-02-15] MEDS: NACL 0.9% 1000 ML 1,000 ML IV SCH (08:11)
[2019-02-15] MEDS: GLUCOTROL PO SCH ×2 (10:25→22:57)
[2019-02-15] MEDS: PEPCID PO SCH ×2 (10:25→22:57)
[2019-02-15] MEDS: THERAGRAN Tab PO SCH (10:25)
[2019-02-15] MEDS: BABY ASPIRIN PO SCH (10:25)
[2019-02-15] MEDS: SODIUM CHLORIDE FLUSH SYRINGE 10 ML IV SCH ×2 (10:28→22:58)
--- NOTE | 2019-02-15 12:14 | Progress Note ---
Assessment and Plan Stable cardiac status. Plan is to stay on ioral AC for 4 weeks prior to attempting electrical cardioversion as outpt. 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 - Patient Problems (1) Sepsis with hypotension Current Visit: Yes Status: Acute (2) New onset a-fib Current Visit: Yes Status: Acute (3) NICM (nonischemic cardiomyopathy) Current Visit: Yes Status: Chronic (4) HTN (hypertension) Current Visit: Yes Status: Chronic (5) Diabetes Current Visit: Yes Status: Chronic Qualifiers: Diabetes mellitus type: type 2 (6) Hypothyroidism Current Visit: Yes Status: Chronic Subjective Date of service: 02/15/19 Principal diagnosis: AF, NICMP, HTN, DM Interval history: No complaint. His BP has improved with IV NS as well as renal indices. Objective Vital Signs Temp Pulse Resp BP BP Pulse Ox 02/15/19 10:00 81 02/15/19 08:15 97.7 F 77 18 111/56 98 02/15/19 04:00 98.8 F 72 16 113/74 100 02/15/19 00:48 83 02/14/19 23:32 97.4 F L 16 125/79 02/14/19 23:00 96 02/14/19 21:13 20 02/14/19 19:31 97.5 F L 16 99/68 02/14/19 19:00 97.5 F L 83 16 99/68 98 02/14/19 17:27 98.4 F 74 18 94/59 98 - Physical Examination General: No Apparent Distress HEENT: Positive: PERRL, Normocephaly, Mucus Membranes Moist Neck: Positive: neck supple, trachea midline. Negative: JVD/HJR, Masses Cardiac: Positive: Reg Rate and Rhythm Lungs: Positive: clear to auscultation Neuro: Positive: Grossly Intact Abdomen: Positive: Soft, Active Bowel Sounds. Negative: Tender Skin: Negative: Rash Musculoskeletal: Normal Range of Motion Extremities: Absent: edema - Labs and Meds CBC 02/15/19 Range/Units 04:02 WBC 10.3 (4.5-11.0) K/mm3 RBC 4.87 (3.65-5.03) M/mm3 Hgb 14.5 (11.8-15.2) gm/dl Hct 43.1 (35.5-45.6) % Plt Count 196 (140-440) K/mm3 Comprehensive Metabolic Panel 02/14/19 02/15/19 Range/Units 13:47 04:02 Sodium 135 L 142 D (137-145) mmol/L Potassium 4.4 4.7 (3.6-5.0) mmol/L Chloride 96.8 L 104.2 (98-107) mmol/L Carbon Dioxide 24 27 (22-30) mmol/L BUN 29 H 19 (9-20) mg/dL Creatinine 2.3 H 1.4 (0.8-1.5) mg/dL Glucose 213 H 64 L (75-100) mg/dL Calcium 9.9 9.2 (8.4-10.2) mg/dL - Imaging and Cardiology EKG: report reviewed, image reviewed Echo: pending, report reviewed ( 11/2017 showed EF 30-35%, mild TR. ) - Telemetry EKG Rhythm: Atrial Fibrillation
--- NOTE | 2019-02-15 13:25 | Progress Note ---
Assessment and Plan Impression * Acute kidney injury * Hyperkalemia * Atrial fibrillation with rapid ventricular response * History of congestive heart failure * Hypertension * Diabetes * Nocturia Recommendations * His renal function is improved significantly. Urine studies however consistent with prerenal azotemia. * Reduce IV fluid * Renal ultrasound does show a complex mass in his prostate. Consider urology evaluation * Follow up results of Vasculitis workup * Avoid nephrotoxins * Continue to hold diuretics for now * Patient is stable for discharge from renal standpoint Subjective Date of service: 02/15/19 Principal diagnosis: AF, NICMP, HTN, DM Interval history: Patient is comfortable today. Feels better. Denies any shortness of breath. No nausea vomiting or diarrhea Objective - Vital Signs Vital signs: Vital Signs - 12hr 02/15/19 02/15/19 02/15/19 04:00 08:15 10:00 Temperature 98.8 F 97.7 F Pulse Rate 72 77 81 Respiratory 16 18 Rate Blood Pressure 111/56 Blood Pressure 113/74 [Right] O2 Sat by Pulse 100 98 Oximetry - General Appearance General appearance: well-developed, well-nourished, appears stated age EENT: PERRL, mucous membranes moist Neck: no JVD, no thyromegaly, no carotid bruit, supple Respiratory: Present: Clear to Ascultation Cardiology: regular, normal heart rate, S1S2, no murmurs Gastrointestinal: normal, normoactive bowel sounds Integumentary: no rash, other (no edema) - Lab 02/15/19 04:02 02/15/19 04:02 Most recent lab results Calcium 9.2 mg/dL (8.4-10.2) 02/15/19 04:02 Magnesium 1.90 mg/dL (1.7-2.3) 02/11/19 13:32 303.2 mg/dL (0.1-20.0) H 02/14/19 13:32 44 mmol/L 02/14/19 13:32 Medications & Allergies - Medications Allergies/Adverse Reactions: Allergies No Known Allergies Allergy (Verified 02/11/19 13:01) Home Medications: Home Medications Medication Instructions Recorded Confirmed Last Taken Type Aspirin [Aspirin BABY CHEW TAB] 81 mg PO DAILY 09/02/13 02/11/19 02/07/19 History Alogliptin Benzoate [Alogliptin] 25 mg PO QDAY 02/11/19 02/11/19 Unknown History AtorvaSTATin [Lipitor] 80 mg PO QHS 02/11/19 02/11/19 Unknown History Dapagliflozin Propanediol [Farxiga] 10 mg PO QDAY 02/11/19 02/11/19 Unknown History Furosemide [Lasix TAB] 80 mg PO QDAY PRN 02/11/19 02/11/19 Unknown History Levothyroxine [Synthroid] 125 mcg PO QAM 02/11/19 02/11/19 Unknown History Lisinopril [Zestril TAB] 10 mg PO QDAY 02/11/19 02/11/19 02/11/19 History Multivitamin Tab [Multiple Vitamin 1 each PO QDAY 02/11/19 02/11/19 Unknown Hist ory TAB (Theragran)] Spironolactone [Aldactone] 25 mg PO QDAY 02/11/19 02/11/19 Unknown History glipiZIDE [Glucotrol] 10 mg PO BID 02/11/19 02/11/19 Unknown History Apixaban [Eliquis] 5 mg PO BID #60 tablet 02/13/19 Unknown Rx Carvedilol [Coreg] 12.5 mg PO BID #60 tablet 02/13/19 Unknown Rx Famotidine [Pepcid] 20 mg PO BID #60 tablet 02/13/19 Unknown Rx Active Medications: Generic Name Dose Route Start Last Admin Trade Name Freq PRN Reason Stop Dose Admin Acetaminophen 650 mg 02/12/19 00:03 02/13/19 20:09 Tylenol PO 650 mg Q4H PRN Administration Pain MILD(1-3)/Fever >100.5/DORSEY Aspirin 81 mg 02/12/19 10:00 02/15/19 10:25 Baby Aspirin PO 81 mg DAILY [facility] Administration Atorvastatin Calcium 80 mg 02/12/19 22:00 02/14/19 21:14 Lipitor PO 80 mg QHS [facility] Administration Famotidine 20 mg 02/12/19 01:00 02/15/19 10:25 Pepcid PO 20 mg BID [facility] Administration Glipizide 10 mg 02/12/19 01:00 02/15/19 10:25 Glucotrol PO 10 mg BID [facility] Administration Hydromorphone HCl 0.5 mg 02/12/19 00:03 Dilaudid IV Q3H PRN Pain , Severe (7-10) Heparin Sodium/Sodium Chloride 25,000 unit in 500 mls @ 24 mls/hr 02/12/19 17:00 02/13/19 07:09 Heparin/ 0.45% Nacl-25,000 Unit/500 Ml IV 1,050 units/hr TITR [facility] 21 mls/hr Titration Protocol 1,200 UNITS/HR Ceftriaxone Sodium 1 gm in 50 mls @ 100 mls/hr 02/14/19 12:53 02/14/19 21:16 Rocephin/Ns 1 Gm/50 Ml IV 100 mls/hr Q24HR@2200 [facility] Administration Protocol Insulin Human Lispro 0 unit 02/12/19 22:00 02/14/19 21:47 Humalog SUB-Q Not Given QHS [facility] Protocol Levothyroxine Sodium 125 mcg 02/12/19 06:00 02/15/19 06:05 Synthroid PO 125 mcg QAM@0600 [facility] Administration Miscellaneous Medication 25 mg 02/12/19 10:00 Alogliptin Benzoate [Alogliptin] PO QDAY [facility] Miscellaneous Medication 10 mg 02/12/19 10:00 Dapagliflozin Propanediol [Farxiga] PO QDAY [facility] Multivitamins 1 each 02/12/19 10:00 02/15/19 10:25 Theragran Tab PO 1 each QDAY [facility] Administration Ondansetron HCl 4 mg 02/12/19 00:03 Zofran IV Q8H PRN Nausea And Vomiting Oxycodone/Acetaminophen 1 tab 02/12/19 00:03 02/14/19 21:13 Percocet 5/325 PO 1 tab Q6H PRN Administration Pain, Moderate (4-6) Sodium Chloride 10 ml 02/12/19 10:00 02/15/19 10:28 Sodium Chloride Flush Syringe 10 Ml IV 10 ml BID [facility] Administration Sodium Chloride 10 ml 02/12/19 00:03 02/14/19 01:11 Sodium Chloride Flush Syringe 10 Ml IV 10 ml PRN PRN Administration LINE FLUSH
--- NOTE | 2019-02-15 14:27 | Consultation ---
History of Present Illness - Reason for Consult Consult date: 02/15/19 fever Requesting physician: AYAN ENG - History of Present Illness 63 y/o male with history of CMP, hypertension, diabetes, hypothyroidism, GERD admitted on for evaluation on new onset A fib during endoscopy. He was scheduled endoscopy with Dr. Mckenzie noted to be in atrial fibrillation and atrial flutter. Denies previous A fib. Denies recent cough, cold, fever, chills, N/V/D. In the ED, temp 97.9, HR 79 rest vitals normal. WBC 4.6. By 02/13/2019, AUGUSTINA was attempted but probe could not be passed down, so not done. He became hypotension 83/50, noted with MARIE and developed a fever 101.4 and wbc went to 16K. UA neg. CXR neg. Blood cultures 02/13/2019 neg. Review of Systems: General: no fever, chills, no malaise Cutaneous: no rash, pruritus Head: no headaches or injury Eyes: no changes in vision, eye pain, double vision Ears: no ear pain, ear discharge, ringing or hearing loss Nose: no nose bleeding, stuffiness Mouth & throat: no bleeding gums, no horseness, no dental problems, or swollen glands Neck: no pain, node enlargement/lumps, tyroid enlargement or tenderness Respiratory: no cough, wheezing, sputum, hemoptysis, pleuritic chest pain Cardiovascular: no chest pain, leg edema, cyanosis, AMES, orthopnea Musculoskeletal: no edema Gastrointestinal: no nausea, no vomiting, no hematemesis, diarrhea, constipation, melena, bright red blood in stools, fecal incontinence, jaundice Genitourinary/Reproductive: no frequent urination, dysuria, hematuria, incontinence Neurogical: no seizures, no headaches, no weakness, no paresthesias, no loss of speech or vision; no memory loss, no vertigo, no tremors, no numbness Psychiatric: stable mood; no excessive anxiety, sadness or moodiness Past History Past Medical History: diabetes, GERD, heart failure, hypertension, hypothyroidism Past Surgical History: thyroidectomy Social history: denies: smoking, alcohol abuse, prescription drug abuse Medications and Allergies Allergies Allergy/AdvReac Type Severity Reaction Status Date / Time No Known Allergies Allergy Verified 02/11/19 13:01 Home Medications Medication Instructions Recorded Confirmed Last Taken Type Aspirin [Aspirin BABY CHEW TAB] 81 mg PO DAILY 09/02/13 02/11/19 02/07/19 History Alogliptin Benzoate [Alogliptin] 25 mg PO QDAY 02/11/19 02/11/19 Unknown History AtorvaSTATin [Lipitor] 80 mg PO QHS 02/11/19 02/11/19 Unknown History Dapagliflozin Propanediol [Farxiga] 10 mg PO QDAY 02/11/19 02/11/19 Unknown History Furosemide [Lasix TAB] 80 mg PO QDAY PRN 02/11/19 02/11/19 Unknown History Levothyroxine [Synthroid] 125 mcg PO QAM 02/11/19 02/11/19 Unknown History Lisinopril [Zestril TAB] 10 mg PO QDAY 02/11/19 02/11/19 02/11/19 History Multivitamin Tab [Multiple Vitamin 1 each PO QDAY 02/11/19 02/11/19 Unknown History TAB (Theragran)] Spironolactone [Aldactone] 25 mg PO QDAY 02/11/19 02/11/19 Unknown History glipiZIDE [Glucotrol] 10 mg PO BID 02/11/19 02/11/19 Unknown History Apixaban [Eliquis] 5 mg PO BID #60 tablet 02/13/19 Unknown Rx Carvedilol [Coreg] 12.5 mg PO BID #60 tablet 02/13/19 Unknown Rx Famotidine [Pepcid] 20 mg PO BID #60 tablet 02/13/19 Unknown Rx Active Meds: Active Medications Acetaminophen (Tylenol) 650 mg PO Q4H PRN PRN Reason: Pain MILD(1-3)/Fever >100.5/[place] Last Admin: 02/13/19 20:09 Dose: 650 mg Documented by: Aspirin (Baby Aspirin) 81 mg PO DAILY [facility] Last Admin: 02/15/19 10:25 Dose: 81 mg Documented by: Atorvastatin Calcium (Lipitor) 80 mg PO QHS [facility] Last Admin: 02/14/19 21:14 Dose: 80 mg Documented by: Famotidine (Pepcid) 20 mg PO BID [facility] Last Admin: 02/15/19 10:25 Dose: 20 mg Documented by: Glipizide (Glucotrol) 10 mg PO BID [facility] Last Admin: 02/15/19 10:25 Dose: 10 mg Documented by: Hydromorphone HCl (Dilaudid) 0.5 mg IV Q3H PRN PRN Reason: Pain , Severe (7-10) Heparin Sodium/Sodium Chloride (Heparin/ 0.45% Nacl-25,000 Unit/500 Ml) 25,000 unit in 500 mls @ 24 mls/hr IV TITR [facility]; Protocol Last Titration: 02/13/19 07:09 Dose: 1,050 units/hr, 21 mls/hr Documented by: Ceftriaxone Sodium (Rocephin/Ns 1 Gm/50 Ml) 1 gm in 50 mls @ 100 mls/hr IV Q24HR@2200 [facility]; Protocol Last Admin: 02/14/19 21:16 Dose: 100 mls/hr Documented by: Insulin Human Lispro (Humalog) 0 unit SUB-Q QHS [facility]; Protocol Last Admin: 02/14/19 21:47 Dose: Not Given Documented by: Levothyroxine Sodium (Synthroid) 125 mcg PO QAM@0600 [facility] Last Admin: 02/15/19 06:05 Dose: 125 mcg Documented by: Miscellaneous Medication (Alogliptin Benzoate [Alogliptin]) 25 mg PO QDAY [facility] Miscellaneous Medication (Dapagliflozin Propanediol [Farxiga]) 10 mg PO QDAY [facility] Multivitamins (Theragran Tab) 1 each PO QDAY [facility] Last Admin: 02/15/19 10:25 Dose: 1 each Documented by: Ondansetron HCl (Zofran) 4 mg IV Q8H PRN PRN Reason: Nausea And Vomiting Oxycodone/Acetaminophen (Percocet 5/325) 1 tab PO Q6H PRN PRN Reason: Pain, Moderate (4-6) Last Admin: 02/14/19 21:13 Dose: 1 tab Documented by: Sodium Chloride (Sodium Chloride Flush Syringe 10 Ml) 10 ml IV BID [facility] Last Admin: 02/15/19 10:28 Dose: 10 ml Documented by: Sodium Chloride (Sodium Chloride Flush Syringe 10 Ml) 10 ml IV PRN PRN PRN Reason: LINE FLUSH Last Admin: 02/14/19 01:11 Dose: 10 ml Documented by: Physical Examination - Physical Exam Narrative exam: General appearance: Alert in NAD Eyes: anicteric sclerae, moist conjunctivae; no lid-lag; PERRLA HENT: Atraumatic; oropharynx clear with moist mucous membranes and no mucosal ulcerations/no oral thrush; normal hard and soft palate. Normal external ears. Neck: Trachea midline; supple, no thyromegaly or lymphadenopathy Lungs: CTA, with normal respiratory effort and no intercostal retractions CV: RRR no murmur Abdomen: Soft, non-tender; no masses or hepatosplenomegaly Extremities: no edema, cyanosis Skin: Normal temperature, turgor and texture; no rash, ulcers or subcutaneous nodules Psych: Appropriate affect, alert and oriented to person, place and time. Neuro: alert and oriented x 3. Moving all extermities - Constitutional Vitals: Vital Signs Temp Pulse Resp BP Pulse Ox 97.7 F 81 18 111/56 98 02/15/19 08:15 02/15/19 10:00 02/15/19 08:15 02/15/19 08:15 02/15/19 08:15 Temperature -Last 24 Hours Temperature 97.7 F Temperature 98.8 F Temperature 97.4 F Temperature 97.5 F Temperature 97.5 F Temperature 98.4 F Results - Labs CBC & Chem 7: 02/15/19 04:02 02/15/19 04:02 Labs: Abnormal lab results 02/14/19 02/14/19 02/14/19 Range/Units 13:47 17:36 21:16 Sodium 135 L (137-145) mmol/L Chloride 96.8 L (98-107) mmol/L BUN 29 H (9-20) mg/dL Creatinine 2.3 H (0.8-1.5) mg/dL Glucose 213 H (75-100) mg/dL POC Glucose 128 H 109 H (70-105) 02/15/19 02/15/19 Range/Units 04:02 12:23 Sodium (137-145) mmol/L Chloride (98-107) mmol/L BUN (9-20) mg/dL Creatinine (0.8-1.5) mg/dL Glucose 64 L (75-100) mg/dL POC Glucose 138 H (70-105) Assessment and Plan Cultures: Blood cultures 02/13/2019 neg. Assessment: 63 y/o male with history of CMP, hypertension, diabetes, hypothyroidism, GERD admitted on 02/11/2019 for evaluation on new onset A fib during endoscopy. He was scheduled endoscopy with Dr. Mckenzie noted to be in atrial fibrillation and atrial flutter. On admission he showed no evidence of sepsis and by 02/13/2019 AUGUSTINA was attempted but probe could not be passed down. He became hypotension 83/50, noted with MARIE and developed a fever 101.4 and wbc went to 16K: 1) SIRS: NOT Present on admission, manifested by fever, tachycardia, hypotension. Etiology unclear. Patient had a recent EGD and found to have esophageal stricture. Sepsis signs noted after attempted AUGUSTINA, probe could not passed down DDx esophageal perf (however currently asymptomatic), aspiration pneumonitis. UA neg. CXR neg. Blood cultures 02/13/2019 neg. Recommendations: - follow-up blood cultures, urine culture - start cefepime and flagyl - stop ceftriaxone - obtain CT chest with contrast - monitor fever Will follow. Maribel Rasmussen MD Infectious Diseases [facility] M [phone] O [phone]
[2019-02-15] MEDS ORDERED: MAXIPIME/NS 2 GM/100 ML 2 GM/100 ML BAG IV SCH (16:00)
[2019-02-15] MEDS ORDERED: FLAGYL 500 MG/100 ML 500 MG/100 ML BAG IV SCH (16:00)
[2019-02-15 17:45] LABS: BUN/Creatinine Ratio 15; Blood Urea Nitrogen 17 mg/dL (9-20); Calcium 9.5 mg/dL (8.4-10.2); Hemolysis Index 8
[2019-02-15] MEDS: MAXIPIME/NS 2 GM/100 ML 2 GM/100 ML BAG IV SCH (19:51)
[2019-02-15] MEDS: FLAGYL 500 MG/100 ML 500 MG/100 ML BAG IV SCH (20:27)
[2019-02-15] MEDS: HumaLOG SUB-Q SCH (22:56)
[2019-02-16] MEDS: MAXIPIME/NS 2 GM/100 ML 2 GM/100 ML BAG IV SCH ×2 (03:45→11:00)
[2019-02-16] MEDS: FLAGYL 500 MG/100 ML 500 MG/100 ML BAG IV SCH ×2 (03:51→12:29)
[2019-02-16] MEDS: SYNTHROID PO SCH (06:21)
[2019-02-16 06:30] LABS: Hematocrit 46.6 % (35.5-45.6); Hemoglobin 15.5 gm/dl (11.8-15.2); Mean Corpuscular HGB Conc 33 % (32-34); Mean Corpuscular Volume 89 fl (84-94); Platelet Count 234 K/mm3 (140-440); Red Blood Count 5.24 M/mm3 (3.65-5.03)
[2019-02-16 06:53] LABS: BUN/Creatinine Ratio 12; Blood Urea Nitrogen 13 mg/dL (9-20); Hemolysis Index 23
--- NOTE | 2019-02-16 07:41 | Progress Note ---
Assessment and Plan Assessment and plan: New onset Atrial fibrillation with RVR Patient was having colonoscopy when developed palptations,diahgnosed with new onset afib Admitted Cardiology following Coreg for rate control Echo EF 15-20% AUGUSTINA attempted but probe could not be passed down, so not done Cardiology recommended dc homey 02/13, orders put in but he had more palpitations ventricular rate 110 so not discharged. Ordered Cardizem 20mg iv X 1 Hypotension resolved MARIE due to ATN, resolving Cr 1.4 today, May be due to hypotension, his Cr was normal yesterday D/c Aldactone, dc Lisinopril Nephrology Give NS Fever to r/o sepsis Fever resolved - no fever X 24 hrs ertiology unclear Blood cultures drawn ID Physician consulted Hyperkalemia now resolved after kayexalate, insulin History of Hypertension Monitor BP Diabetes mellitus type 2 Fingerstick qac and hs Hypothyroidism Non-ischemic cardiomyopathy Chronic systolic CHF Coreg, Aldactone Full code status History Interval history: Patient was having colonoscopy developed rapid afib, Was about to be discharged 02/13, but has palpitations ventricular rate 110s so discharge cancelled Fever now resolved Feels better today Hospitalist Physical - Physical exam Narrative exam: Gen: Not in acute distress, lying in bed, HEENT: Normocephalic, atraumatic Neck: supple, no JVD Heart: S1 and S2 irreg,no murmurs, rubs or gallop Lungs: Clear, no crackles or wheeze Abd: soft, non tender, non distended, normal BS Ext:no edema, no clubbing, no cyanosis Neuro: Awake,alert,oriented X 3,moves all ext Psych:Normal mood - Constitutional Vitals: Temp Pulse Resp BP Pulse Ox 98.5 F 85 16 102/68 98 02/16/19 04:05 02/16/19 04:05 02/16/19 04:05 02/16/19 04:05 02/16/19 04:05 General appearance: Present: no acute distress Results - Labs CBC & Chem 7: 02/16/19 05:39 02/16/19 05:39 Labs: Laboratory Last Values WBC 4.8 K/mm3 (4.5-11.0) 02/16/19 05:39 RBC 5.24 M/mm3 (3.65-5.03) H 02/16/19 05:39 Hgb 15.5 gm/dl (11.8-15.2) H 02/16/19 05:39 Hct 46.6 % (35.5-45.6) H 02/16/19 05:39 MCV 89 fl (84-94) 02/16/19 05:39 MCH 30 pg (28-32) 02/16/19 05:39 MCHC 33 % (32-34) 02/16/19 05:39 RDW 15.0 % (13.2-15.2) 02/16/19 05:39 Plt Count 234 K/mm3 (140-440) 02/16/19 05:39 Lymph % (Auto) 4.1 % (13.4-35.0) L 02/13/19 23:18 [place] % (Auto) 5.8 % (0.0-7.3) 02/13/19 23:18 Eos % (Auto) 0.0 % (0.0-4.3) 02/13/19 23:18 Baso % (Auto) 0.5 % (0.0-1.8) 02/13/19 23:18 Lymph # 0.5 K/mm3 (1.2-5.4) L 02/13/19 23:18 [place] # 0.7 K/mm3 (0.0-0.8) 02/13/19 23:18 Eos # 0.0 K/mm3 (0.0-0.4) 02/13/19 23:18 Baso # 0.1 K/mm3 (0.0-0.1) 02/13/19 23:18 Add Manual Diff Complete 02/13/19 05:40 Total Counted 100 02/13/19 05:40 Seg Neutrophils % 89.6 % (40.0-70.0) H 02/13/19 23:18 Seg Neuts % (Manual) 72.0 % (40.0-70.0) H 02/13/19 05:40 0 % 02/13/19 05:40 14.0 % (13.4-35.0) 02/13/19 05:40 Reactive Lymphs % (Man) 0 % 02/13/19 05:40 12.0 % (0.0-7.3) H 02/13/19 05:40 1.0 % (0.0-4.3) 02/13/19 05:40 1.0 % (0.0-1.8) 02/13/19 05:40 0 % 02/13/19 05:40 0 % 02/13/19 05:40 0 % 02/13/19 05:40 0 % 02/13/19 05:40 Nucleated RBC % Not Reportable 02/13/19 05:40 Seg Neutrophils # 11.5 K/mm3 (1.8-7.7) H 02/13/19 23:18 Seg Neutrophils # Man 3.3 K/mm3 (1.8-7.7) 02/13/19 05:40 Band Neutrophils # 0.0 K/mm3 02/13/19 05:40 0.6 K/mm3 (1.2-5.4) L 02/13/19 05:40 Abs React Lymphs (Man) 0.0 K/mm3 02/13/19 05:40 0.6 K/mm3 (0.0-0.8) 02/13/19 05:40 0.0 K/mm3 (0.0-0.4) 02/13/19 05:40 0.0 K/mm3 (0.0-0.1) 02/13/19 05:40 0.0 K/mm3 02/13/19 05:40 0.0 K/mm3 02/13/19 05:40 0.0 K/mm3 02/13/19 05:40 Blast Cells # 0.0 K/mm3 02/13/19 05:40 WBC Morphology Not Reportable 02/13/19 05:40 Hypersegmented Neuts Not Reportable 02/13/19 05:40 Hyposegmented Neuts Not Reportable 02/13/19 05:40 Hypogranular Neuts Not Reportable 02/13/19 05:40 Not Reportable 02/13/19 05:40 Not Reportable 02/13/19 05:40 Not Reportable 02/13/19 05:40 Not Reportable 02/13/19 05:40 Not Reportable 02/13/19 05:40 Not Reportable 02/13/19 05:40 Consistent w auto 02/13/19 05:40 Not Reportable 02/13/19 05:40 Plt Clumps, EDTA Not Reportable 02/13/19 05:40 Rare 02/13/19 05:40 Not Reportable 02/13/19 05:40 Not Reportable 02/13/19 05:40 Plt Morphology Comment Not Reportable 02/13/19 05:40 RBC Morphology Not Reportable 02/13/19 05:40 Dimorphic RBCs Not Reportable 02/13/19 05:40 Not Reportable 02/13/19 05:40 Not Reportable 02/13/19 05:40 Not Reportable 02/13/19 05:40 Few 02/13/19 05:40 Not Reportable 02/13/19 05:40 Not Reportable 02/13/19 05:40 Not Reportable 02/13/19 05:40 Not Reportable 02/13/19 05:40 Not Reportable 02/13/19 05:40 Not Reportable 02/13/19 05:40 Not Reportable 02/13/19 05:40 Not Reportable 02/13/19 05:40 Not Reportable 02/13/19 05:40 Not Reportable 02/13/19 05:40 Not Reportable 02/13/19 05:40 Not Reportable 02/13/19 05:40 Not Reportable 02/13/19 05:40 Not Reportable 02/13/19 05:40 Not Reportable 02/13/19 05:40 Acanthocytes (Spur) Not Reportable 02/13/19 05:40 Rouleaux Not Reportable 02/13/19 05:40 Not Reportable 02/13/19 05:40 Not Reportable 02/13/19 05:40 Not Reportable 02/13/19 05:40 Not Reportable 02/13/19 05:40 Hem Pathologist Commnt No 02/13/19 05:40 PT 17.0 Sec. (12.2-14.9) H 02/12/19 20:14 INR 1.42 (0.87-1.13) H 02/12/19 20:14 APTT > 240.0 Sec. (24.2-36.6) H* 02/12/19 20:14 Heparin Anti-Xa Level 0.10 U.I./ml (0.3-0.7) L 02/13/19 14:49 Sodium 141 mmol/L (137-145) 02/16/19 05:39 Potassium 4.2 mmol/L (3.6-5.0) 02/16/19 05:39 Chloride 101.6 mmol/L (98-107) 02/16/19 05:39 Carbon Dioxide 22 mmol/L (22-30) 02/16/19 05:39 22 mmol/L 02/16/19 05:39 BUN 13 mg/dL (9-20) 02/16/19 05:39 1.1 mg/dL (0.8-1.5) 02/16/19 05:39 Estimated GFR > 60 ml/min 02/16/19 05:39 12 % 02/16/19 05:39 Glucose 124 mg/dL (75-100) H 02/16/19 05:39 POC Glucose 108 (70-105) H 02/16/19 07:28 7.0 % (4-6) H 02/12/19 02:04 Lactic Acid 1.70 mmol/L (0.7-2.0) 02/13/19 23:18 Calcium 10.0 mg/dL (8.4-10.2) 02/16/19 05:39 Magnesium 1.90 mg/dL (1.7-2.3) 02/11/19 13:32 0.60 mg/dL (0.1-1.2) 02/13/19 05:40 AST 14 units/L (5-40) 02/13/19 05:40 ALT 15 units/L (7-56) 02/13/19 05:40 100 units/L (35-129) 02/13/19 05:40 < 0.010 ng/mL (0.00-0.029) 02/11/19 15:44 7.7 g/dL (6.3-8.2) 02/13/19 05:40 4.3 g/dL (3.9-5) 02/13/19 05:40 1.3 % 02/13/19 05:40 TSH 1.040 mlU/mL (0.270-4.200) 02/11/19 13:32 (Yellow) 02/14/19 13:32 Clear (Clear) 02/14/19 13:32 5.0 (5.0-7.0) 02/14/19 13:32 Ur Specific [place] 1.022 (1.003-1.030) 02/14/19 13:32 30 mg/dl mg/dL (Negative) 02/14/19 13:32 >=500 mg/dL (Negative) 02/14/19 13:32 Tr mg/dL (Negative) 02/14/19 13:32 Neg (Negative) 02/14/19 13:32 Neg (Negative) 02/14/19 13:32 Neg (Negative) 02/14/19 13:32 < 2.0 mg/dL (<2.0) 02/14/19 13:32 Ur Leukocyte Esterase Neg (Negative) 02/14/19 13:32 2.0 /HPF (0.0-6.0) 02/14/19 13:32 2.0 /HPF (0.0-6.0) 02/14/19 13:32 U Epithel Cells (Auto) < 1.0 /HPF (0-13.0) 02/14/19 13:32 1+ /HPF 02/14/19 13:32 303.2 mg/dL (0.1-20.0) H 02/14/19 13:32 44 mmol/L 02/14/19 13:32 Fraction Sodium Excret 0.0 02/14/19 13:32 Hepatitis A IgM Ab Non-reactive (NonReactive) 02/14/19 13:47 Hep Bs Antigen Non-reactive (Negative) 02/14/19 13:47 Hep B Core IgM Ab Non-reactive (NonReactive) 02/14/19 13:47 Non-reactive (NonReactive) 02/14/19 13:47 Active Medications - Current Medications Current Medications: Generic Name Dose Route Start Last Admin Trade Name [place] PRN Reason Stop Dose Admin Acetaminophen 650 mg 02/12/19 00:03 02/13/19 20:09 Tylenol PO 650 mg Q4H PRN Administration Pain MILD(1-3)/Fever >100.5/DORSEY Aspirin 81 mg 02/12/19 10:00 02/15/19 10:25 Baby Aspirin PO 81 mg DAILY [facility] Administration Atorvastatin Calcium 80 mg 02/15/19 22:00 02/15/19 22:56 Lipitor PO 80 mg QHS [facility] Administration Famotidine 20 mg 02/12/19 01:00 02/15/19 22:57 Pepcid PO 20 mg BID [facility] Administration Glipizide 10 mg 02/12/19 01:00 02/15/19 22:57 Glucotrol PO 10 mg BID [facility] Administration Hydromorphone HCl 0.5 mg 02/12/19 00:03 Dilaudid IV Q3H PRN Pain , Severe (7-10) Heparin Sodium/Sodium Chloride 25,000 unit in 500 mls @ 24 mls/hr 02/12/19 17:00 02/13/19 07:09 Heparin/ 0.45% Nacl-25,000 Unit/500 Ml IV 1,050 units/hr TITR [facility] 21 mls/hr Titration Protocol 1,200 UNITS/HR Cefepime HCl 2 gm in 100 mls @ 200 mls/hr 02/15/19 19:00 02/16/19 03:45 Maxipime/Ns 2 Gm/100 Ml IV 200 mls/hr Q8H [facility] Administration Protocol Metronidazole 500 mg in 100 mls @ 100 mls/hr 02/15/19 19:00 02/16/19 03:51 Flagyl 500 Mg/100 Ml IV 100 mls/hr Q8H [facility] Administration Protocol Insulin Human Lispro 0 unit 02/12/19 22:00 02/15/19 22:56 Humalog SUB-Q 3 unit QHS [facility] Administration Protocol Levothyroxine Sodium 125 mcg 02/12/19 06:00 02/16/19 06:21 Synthroid PO 125 mcg QAM@0600 [facility] Administration Miscellaneous Medication 25 mg 02/12/19 10:00 Alogliptin Benzoate [Alogliptin] PO QDAY [facility] Miscellaneous Medication 10 mg 02/12/19 10:00 Dapagliflozin Propanediol [Farxiga] PO QDAY [facility] Multivitamins 1 each 02/12/19 10:00 02/15/19 10:25 Theragran Tab PO 1 each QDAY [facility] Administration Ondansetron HCl 4 mg 02/12/19 00:03 Zofran IV Q8H PRN Nausea And Vomiting Oxycodone/Acetaminophen 1 tab 02/12/19 00:03 02/14/19 21:13 Percocet 5/325 PO 1 tab Q6H PRN Administration Pain, Moderate (4-6) Sodium Chloride 10 ml 02/12/19 10:00 02/15/19 22:58 Sodium Chloride Flush Syringe 10 Ml IV 10 ml BID [facility] Administration Sodium Chloride 10 ml 02/12/19 00:03 02/14/19 01:11 Sodium Chloride Flush Syringe 10 Ml IV 10 ml PRN PRN Administration LINE FLUSH
[2019-02-16] MEDS: BABY ASPIRIN PO SCH (09:06)
[2019-02-16] MEDS: THERAGRAN Tab PO SCH (09:07)
[2019-02-16] MEDS: PEPCID PO SCH ×2 (09:07→21:13)
[2019-02-16] MEDS: GLUCOTROL PO SCH ×2 (09:07→21:12)
--- NOTE | 2019-02-16 10:03 | Progress Note ---
Assessment and Plan Cultures: Blood cultures 02/13/2019 neg. Assessment: 63 y/o male with history of CMP, hypertension, diabetes, hypothyroidism, GERD admitted on 02/11/2019 for evaluation on new onset A fib during endoscopy. He was scheduled endoscopy with Dr. Mckenzie noted to be in atrial fibrillation and atrial flutter. On admission he showed no evidence of sepsis and by 02/13/2019 AUGUSTINA was attempted but probe could not be passed down. He became hypotension 83/50, noted with MARIE and developed a fever 101.4 and wbc went to 16K: 1) SIRS: Resolved. NOT Present on admission, manifested by fever, tachycardia, hypotension. Etiology unclear. Patient had a recent EGD and found to have esophageal stricture. Sepsis signs noted after attempted AUGUSTINA, probe could not passed down DDx esophageal perf (however currently asymptomatic), aspiration pneumonitis. UA neg. CXR neg. Blood cultures 02/13/[address] chest w/contrast show no evidence of esophageal perforation. Mild nonspecific wall thickening in the lower thoracic esophagus without significant obstruction. Scattered foci of faint groundglass opacity in the bilateral lungs. Recommendations: - discontinue cefepime and flagyl -start Augmentin 875 mg PO BID to complete 5 days ending 02-19-19 [facility] M: [id number] O:[phone] Subjective Date of service: 02/16/19 Principal diagnosis: AF, NICMP, HTN, DM Interval history: Patient seen and examined. No acute distress or generalized weakness reported. No fevers. Objective - Exam Narrative Exam: General appearance: Awake. Alert. No acute distress Eyes: anicteric sclerae, moist conjunctivae; no lid-lag; PERRLA HENT: Atraumatic; oropharynx clear with moist mucous membranes and no mucosal ulcerations/no oral thrush; normal hard and soft palate. Normal external ears. Neck: Trachea midline; supple, no thyromegaly or lymphadenopathy Lungs: CTA, with normal respiratory effort and no intercostal retractions CV: RRR no murmur Abdomen: Soft, non-tender; no masses or hepatosplenomegaly Extremities: no edema, cyanosis Skin: Normal temperature, turgor and texture; no rash, ulcers or subcutaneous nodules Psych: Appropriate affect, alert and oriented to person, place and time. Neuro: alert and oriented x 3. Moving all extermities - Constitutional Vitals: Vital Signs Temp Pulse Resp BP Pulse Ox 97.7 F 74 18 104/64 98 02/16/19 07:40 02/16/19 07:40 02/16/19 07:40 02/16/19 07:40 02/16/19 07:40 Temperature -Last 24 Hours Temperature 97.7 F Temperature 98.5 F Temperature 98.1 F Temperature 98.2 F - Labs CBC & Chem 7: 02/16/19 05:39 02/16/19 05:39 Labs: Abnormal lab results 02/15/19 02/15/19 02/15/19 Range/Units 12:23 17:14 17:43 RBC (3.65-5.03) M/mm3 Hgb (11.8-15.2) gm/dl Hct (35.5-45.6) % Potassium 5.1 H (3.6-5.0) mmol/L Glucose 192 H (75-100) mg/dL POC Glucose 138 H 174 H (70-105) 02/15/19 02/16/19 02/16/19 Range/Units 21:10 05:39 05:39 RBC 5.24 H (3.65-5.03) M/mm3 Hgb 15.5 H (11.8-15.2) gm/dl Hct 46.6 H (35.5-45.6) % Potassium (3.6-5.0) mmol/L Glucose 124 H (75-100) mg/dL POC Glucose 203 H (70-105) 02/16/19 Range/Units 07:28 RBC (3.65-5.03) M/mm3 Hgb (11.8-15.2) gm/dl Hct (35.5-45.6) % Potassium (3.6-5.0) mmol/L Glucose (75-100) mg/dL POC Glucose 108 H (70-105)
--- NOTE | 2019-02-16 11:00 | Cat Scan Report ---
CT chest wo con INDICATION: Fever, recent EGD and transesophageal echocardiogram. TECHNIQUE: CT of the chest performed without IV contrast. Series were performed before and after the administrat ion of oral Gastrografin (CT esophagram protocol). All CT scans at this location are performed using CT dose reduction for ALARA by means of automated exposure control. COMPARISON: Chest x-ray on 02/14/2019. FINDINGS: There is no pneumomediastinum or extraluminal contrast to suggest an esophageal perforation. There is no pleural effusion. There is mild thickening of the lower esophageal wall without evidence of obstr uction. There are scattered faint groundglass opacities in the left upper lobe and left lower lobe as well as in the midportion of the right lung and the right middle lobe and superior segment of the right lowe r lobe. There is no pneumothorax or pericardial effusion. The imaged upper abdominal organs demonstrate no significant abnormality. There are no aggressive carlos enrique earing bone lesions. The thyroid gland appears to be surgically absent. There is no mediastinal adeno clive. IMPRESSION: 1. No evidence of esophageal perforation. Mild nonspecific wall thickening in the lower thoracic esop hagus without significant obstruction. 2. Scattered foci of faint groundglass opacity in the bilateral lungs, with midlung predominance. Thi s is nonspecific but could indicate an atypical infectious process. Other considerations would includ e mild pulmonary hemorrhage and atypical edema. Signer Name: Sarath Connelly MD Signed: 02/16/2019 10:55 AM Workstation Name: [id number]
[2019-02-16] MEDS: SODIUM CHLORIDE FLUSH SYRINGE 10 ML IV SCH ×2 (12:27→21:13)
[2019-02-16] MEDS: PERCOCET 5/325 PO PRN (12:51)
--- NOTE | 2019-02-16 17:23 | Discharge Summary ---
Providers - Providers Date of Admission: 02/11/19 15:23 Date of discharge: 02/16/19 Attending physician: AYAN ENG 02/12/19 00:03 Consult to Physician [CONS] Routine Comment: Consulting Provider: LOI CHUN Physician Instructions: Reason For Exam: CHF exacerbation and A. fib with RVR 02/14/19 09:40 Consult to Physician [CONS] Routine Comment: Consulting Provider: EJSSICA CORDOVA Physician Instructions: Reason For Exam: Fever Consult to Physician [CONS] Routine Comment: Consulting Provider: GAYLA PARKER Physician Instructions: Reason For Exam: MARIE 02/16/19 09:09 Consult to Physician [CONS] Routine Comment: Consulting Provider: VIDA RAMACHANDRAN Physician Instructions: Reason For Exam: Inability to pass probe on attemted AUGUSTINA Primary care physician: [facility] MD ROB Hospitalization Condition: Fair Hospital course: New onset Atrial fibrillation with RVR Patient was having colonoscopy when developed palptations,diahgnosed with new onset afib Admitted Cardiology following Coreg for rate control Echo EF 15-20% AUGUSTINA attempted but probe could not be passed down, so not done Hypotension resolved MARIE due to ATN, resolving Cr 1.4 today, May be due to hypotension, his Cr was normal yesterday D/c Aldactone, dc Lisinopril Nephrology Give NS Fever to r/o sepsis Fever resolved - no fever X 24 hrs ertiology unclear Blood cultures drawn ID Physician consulted Hyperkalemia now resolved after kayexalate, insulin History of Hypertension Monitor BP Diabetes mellitus type 2 Fingerstick qac and hs Hypothyroidism Non-ischemic cardiomyopathy Chronic systolic CHF Coreg, Aldactone Disposition: DC- TO HOME OR SELFCARE - Discharge Diagnoses (1) SIRS (systemic inflammatory response syndrome) Status: Acute Exam - Constitutional Vitals: Temp Pulse Resp BP Pulse Ox 97.7 F 108 H 18 104/64 98 02/16/19 07:40 02/16/19 12:00 02/16/19 07:40 02/16/19 07:40 02/16/19 12:00 Plan Activity: no restrictions Diet: low fat, low cholesterol, low salt, diabetic Additional Instructions: 1.Follow up with PCP in 2-3 days. 2.Follow up with coupon and bond collection clerk in 3-5 days Follow up with: ROB SANCHEZRANKIN MD KAREN [Primary Care Provider] - 3-5 Days Prescriptions: Amoxicillin/K Clav Tab [Augmentin 875MG TAB] 1 each PO Q12HR 4 Days #8 tablet Carvedilol [Coreg] 3.125 mg PO BID #60 tablet Apixaban [Eliquis] 5 mg PO BID #60 tablet Famotidine [Pepcid] 20 mg PO BID #60 tablet
--- NOTE | 2019-02-16 17:53 | Progress Note ---
Assessment and Plan - Patient Problems (1) Atrial fibrillation and flutter Current Visit: Yes Status: Acute Plan to address problem: Atrial fibrillation Irregularly irregular on auscultation (2) Diabetes Current Visit: Yes Status: Chronic Qualifiers: Diabetes mellitus type: type 2 Plan to address problem: Diabetes mellitus Ensure medications Monitor fingersticks (3) Acute kidney injury Current Visit: Yes Status: Acute Plan to address problem: Acute kidney injury now resolved Creatinine 1.1 mg/DL Avoid nephrotoxic medications Strict input and outputs Monitor renal function (4) Hyperkalemia, diminished renal excretion Current Visit: Yes Status: Acute Plan to address problem: Hyperkalemia; now resolved Low potassium diet Subjective Principal diagnosis: AF, NICMP, HTN, DM Interval history: 63-year-old gentleman with A. fib with RVR acute kidney injury the 44 and potassium he's anxious to be discharged denies any fever or chills denies any abdominal pain Objective - Vital Signs Vital signs: Vital Signs - 12hr 02/16/19 02/16/19 02/16/19 07:40 10:00 12:00 Temperature 97.7 F Pulse Rate 74 74 Pulse Rate [ 108 H From Monitor] Respiratory 18 Rate Blood Pressure 104/64 O2 Sat by Pulse 98 98 Oximetry - General Appearance General appearance: well-developed, well-nourished EENT: ATNC, PERRL, mucous membranes moist Neck: no JVD Respiratory: Present: Clear to Ascultation, Decreased Breath Sounds Cardiology: irregularly irregular, S1S2 Gastrointestinal: normal, normoactive bowel sounds Neurologic: no focal deficit, alert and oriented x3 Psychiatric: mood/affect appropriate - Lab 02/16/19 05:39 02/16/19 05:39 Most recent lab results Calcium 10.0 mg/dL (8.4-10.2) 02/16/19 05:39 Magnesium 1.90 mg/dL (1.7-2.3) 02/11/19 13:32 303.2 mg/dL (0.1-20.0) H 02/14/19 13:32 44 mmol/L 02/14/19 13:32 - Imaging Chest x-ray: image reviewed Kidney/bladder ultrasound: other (consult for complex mass of the prostate needs urology follow-up) Medications & Allergies - Medications Allergies/Adverse Reactions: Allergies No Known Allergies Allergy (Verified 02/11/19 13:01) Home Medications: Home Medications Medication Instructions Recorded Confirmed Last Taken Type Aspirin [Aspirin BABY CHEW TAB] 81 mg PO DAILY 09/02/13 02/11/19 02/07/19 History Alogliptin Benzoate [Alogliptin] 25 mg PO QDAY 02/11/19 02/11/19 Unknown History AtorvaSTATin [Lipitor] 80 mg PO QHS 02/11/19 02/11/19 Unknown History Dapagliflozin Propanediol [Farxiga] 10 mg PO QDAY 02/11/19 02/11/19 Unknown History Furosemide [Lasix TAB] 80 mg PO QDAY PRN 02/11/19 02/11/19 Unknown History Levothyroxine [Synthroid] 125 mcg PO QAM 02/11/19 02/11/19 Unknown History Multivitamin Tab [Multiple Vitamin 1 each PO QDAY 02/11/19 02/11/19 Unknown History TAB (Theragran)] Spironolactone [Aldactone] 25 mg PO QDAY 02/11/19 02/11/19 Unknown History glipiZIDE [Glucotrol] 10 mg PO BID 02/11/19 02/11/19 Unknown History Apixaban [Eliquis] 5 mg PO BID #60 tablet 02/13/19 Unknown Rx Famotidine [Pepcid] 20 mg PO BID #60 tablet 02/13/19 Unknown Rx Amoxicillin/K Clav Tab [Augmentin 1 each PO Q12HR 4 Days #8 tablet 02/16/19 Unknown Rx 875MG TAB] Carvedilol [Coreg] 3.125 mg PO BID #60 tablet 02/16/19 Unknown Rx Active Medications: Generic Name Dose Route Start Last Admin Trade Name Freq PRN Reason Stop Dose Admin Acetaminophen 650 mg 02/12/19 00:03 02/13/19 20:09 Tylenol PO 650 mg Q4H PRN Administration Pain MILD(1-3)/Fever >100.5/DORSEY Amoxicillin/Clavulanate Potassium 1 each 02/16/19 22:00 Augmentin 875 Mg PO Q12HR ELIZABETH Aspirin 81 mg 02/12/19 10:00 02/16/19 09:06 Baby Aspirin PO 81 mg DAILY ELIZABETH Administration Atorvastatin Calcium 80 mg 02/15/19 22:00 02/15/19 22:56 Lipitor PO 80 mg QHS ELIZABETH Administration Famotidine 20 mg 02/12/19 01:00 02/16/19 09:07 Pepcid PO 20 mg BID ELIZABETH Administration Glipizide 10 mg 02/12/19 01:00 02/16/19 09:07 Glucotrol PO 10 mg BID ELIZABETH Administration Hydromorphone HCl 0.5 mg 02/12/19 00:03 Dilaudid IV Q3H PRN Pain , Severe (7-10) Heparin Sodium/Sodium Chloride 25,000 unit in 500 mls @ 24 mls/hr 02/12/19 17:00 02/13/19 07:09 Heparin/ 0.45% Nacl-25,000 Unit/500 Ml IV 1,050 units/hr TITR ELIZABETH 21 mls/hr Titration Protocol 1,200 UNITS/HR Insulin Human Lispro 0 unit 02/12/19 22:00 02/15/19 22:56 Humalog SUB-Q 3 unit QHS [facility] Administration Protocol Levothyroxine Sodium 125 mcg 02/12/19 06:00 02/16/19 06:21 Synthroid PO 125 mcg QAM@0600 [facility] Administration Miscellaneous Medication 25 mg 02/12/19 10:00 Alogliptin Benzoate [Alogliptin] PO QDAY [facility] Miscellaneous Medication 10 mg 02/12/19 10:00 Dapagliflozin Propanediol [Farxiga] PO QDAY [facility] Multivitamins 1 each 02/12/19 10:00 02/16/19 09:07 Theragran Tab PO 1 each QDAY [facility] Administration Ondansetron HCl 4 mg 02/12/19 00:03 Zofran IV Q8H PRN Nausea And Vomiting Oxycodone/Acetaminophen 1 tab 02/12/19 00:03 02/16/19 12:51 Percocet 5/325 PO 1 tab Q6H PRN Administration Pain, Moderate (4-6) Sodium Chloride 10 ml 02/12/19 10:00 02/16/19 12:27 Sodium Chloride Flush Syringe 10 Ml IV Not Given BID ELIZABETH Sodium Chloride 10 ml 02/12/19 00:03 02/14/19 01:11 Sodium Chloride Flush Syringe 10 Ml IV 10 ml PRN PRN Administration LINE FLUSH
[2019-02-16] MEDS: AUGMENTIN 875 MG PO SCH (21:12)
[2019-02-16] MEDS: HumaLOG SUB-Q SCH (21:13)
--- NOTE | 2019-02-17 01:34 | Consultation ---
HISTORY OF PRESENT ILLNESS: This is a 63-year-old [place] gentleman who has an underlying history of congestive heart failure, hypertension, diabetes mellitus who underwent a colonoscopy and an EGD with dilation at [facility] on 02/11/2019. EGD had shown presence of distal esophageal stenosis for which he underwent dilation with a balloon and some changes in the mucosa of the proximal stomach, possibly secondary to prolonged use of PPI. The biopsies came back as showing intestinal metaplasia that is negative for H. pylori. In addition, the colonoscopy showed a minute tubular adenoma from the ascending colon. The patient subsequent to the procedure developed atrial fibrillation, was sent to the ER and was subsequently admitted to the hospital for further assessment. The patient did following admission have an elevated temperature as well as some leukocytosis that has since resolved. There was initial question as to whether the patient may have had a perforation but at present it does not clinically appear to be so. The patient is resting in bed, in no apparent distress and has been having bowel movements and is able to eat properly. His elevated temperature has since resolved as has his leukocytosis. The patient does not appear to be in any significant distress at the moment. ALLERGIES: He has no known allergies. SOCIAL HISTORY: Denies history of smoking or alcohol use. PAST MEDICAL HISTORY: Significant for congestive heart failure, diabetes mellitus type 2, hypertension. He has had his flu shots. PHYSICAL EXAMINATION: GENERAL: He is alert and oriented, no apparent distress, answers appropriately to questions. Does not have any dyspnea, orthopnea. He is lying flat in bed. The patient was seen in the presence of his nurse. VITAL SIGNS: Blood pressure at present is 104/64, pulse is 77. HEENT: Shows no JVD. LUNGS: Shows reduced breath sounds. CARDIOVASCULAR: Grossly normal. ABDOMEN: Soft, bowel sounds present. He has had an irregular pulse, which has been addressed by Cardiology. Abdomen is soft. EXTREMITIES: Minimal pedal edema. NEUROLOGIC: He is alert and oriented. Cardiology attempted to do a AUGUSTINA, but was unable to pass the AUGUSTINA scope. The patient may require further evaluation and treatment by Cardiology. ASSESSMENT: Atrial fibrillation, which appears to be under control; congestive heart failure, controlled; hypertension; diabetes mellitus type 2; small tubular adenoma involving the ascending colon; benign esophageal stenosis status post esophageal dilation with a balloon dilator. The patient is otherwise stable and may be discharged from a GI standpoint on present GI medication. Further workup may be required by Cardiology that is as per Cardiology. The patient has been requested to follow up with me on an outpatient basis. Thank you for the consult. JOB# [id number] SANDY/CELSO
[2019-02-17] MEDS: SYNTHROID PO SCH (05:56)
[2019-02-17 06:48] LABS: BUN/Creatinine Ratio 8; Blood Urea Nitrogen 9 mg/dL (9-20); Calcium 9.6 mg/dL (8.4-10.2); Hemolysis Index 8
[2019-02-17 08:15] VITALS: BP 108/68
--- NOTE | 2019-02-17 09:52 | Progress Note ---
Assessment and Plan Cultures: Blood cultures 02/13/2019 neg. Assessment: 63 y/o male with history of CMP, hypertension, diabetes, hypothyroidism, GERD admitted on 02/11/2019 for evaluation on new onset A fib during endoscopy. He was scheduled endoscopy with Dr. Mckenzie noted to be in atrial fibrillation and atrial flutter. On admission he showed no evidence of sepsis and by 02/13/2019 AUGUSTINA was attempted but probe could not be passed down. He became hypotension 83/50, noted with MARIE and developed a fever 101.4 and wbc went to 16K: 1) SIRS: Resolved. NOT Present on admission, manifested by fever, tachycardia, hypotension. Etiology unclear. Patient had a recent EGD and found to have esophageal stricture. Sepsis signs noted after attempted AUGUSTINA, probe could not passed down DDx esophageal perf (however currently asymptomatic), aspiration pneumonitis. UA neg. CXR neg. Blood cultures 02/13/[address] chest w/contrast show no evidence of esophageal perforation. Mild nonspecific wall thickening in the lower thoracic esophagus without significant obstruction. Scattered foci of faint groundglass opacity in the bilateral lungs. Recommendations: - Continue Augmentin 875 mg PO BID to complete 5 days ending 02-19-19 Clinically stable, ID is signing off [facility] M: [id number] O:[phone] Subjective Date of service: 02/17/19 Principal diagnosis: AF, NICMP, HTN, DM Interval history: Patient seen and examined. No acute distress or generalized weakness reported. No fevers. Objective - Exam Narrative Exam: General appearance: Awake. Alert. No acute distress Eyes: anicteric sclerae, moist conjunctivae; no lid-lag; PERRLA HENT: Atraumatic; oropharynx clear with moist mucous membranes and no mucosal ulcerations/no oral thrush; normal hard and soft palate. Normal external ears. Neck: Trachea midline; supple, no thyromegaly or lymphadenopathy Lungs: CTA, with normal respiratory effort and no intercostal retractions CV: RRR no murmur Abdomen: Soft, non-tender; no masses or hepatosplenomegaly Extremities: no edema, cyanosis Skin: Normal temperature, turgor and texture; no rash, ulcers or subcutaneous nodules Psych: Appropriate affect, alert and oriented to person, place and time. Neuro: alert and oriented x 3. Moving all extremities - Constitutional Vitals: Vital Signs Temp Pulse Resp BP Pulse Ox 98.4 F 80 18 108/68 94 02/17/19 07:45 02/17/19 07:45 02/17/19 07:45 02/17/19 07:45 02/17/19 07:45 Temperature -Last 24 Hours Temperature 98.4 F Temperature 98.1 F Temperature 98.5 F Temperature 98.2 F Temperature 97.4 F Temperature 97.3 F - Labs CBC & Chem 7: 02/16/19 05:39 02/17/19 05:34 Labs: Abnormal lab results 02/16/19 02/16/19 02/16/19 Range/Units 12:32 17:06 20:16 POC Glucose 227 H 118 H 228 H (70-105) 02/17/19 Range/Units 07:51 POC Glucose 118 H (70-105)
[2019-02-17] MEDS: PEPCID PO SCH (10:56)
[2019-02-17] MEDS: BABY ASPIRIN PO SCH (10:56)
[2019-02-17] MEDS: THERAGRAN Tab PO SCH (10:56)
[2019-02-17] MEDS: GLUCOTROL PO SCH (10:56)
[2019-02-17] MEDS: SODIUM CHLORIDE FLUSH SYRINGE 10 ML IV SCH (10:56)
[2019-02-17] MEDS: AUGMENTIN 875 MG PO SCH (10:57)
[2019-02-17 23:01] LABS: Albumin 3.5 g/dL (3.8-4.8); Gamma Globulin 0.9 g/dL (0.8-1.7)
[2019-02-19 19:02] LABS: Myeloperoxidase Antibody <1.0 AI (<1.0)
== END 2019-02-17 12:10 | disposition home or self-care (01) | DRG 308 ==
LOC: ED 12:54 → 4A 15:23
PROVIDERS: ADMIT Internal Medicine; ATTEND Internal Medicine
DX: I48.91 Unspecified atrial fibrillation (principal); N17.0 Acute kidney failure with tubular necrosis; I50.22 Chronic systolic (congestive) heart failure; I95.9 Hypotension, unspecified; I42.8 Other cardiomyopathies; E87.5 Hyperkalemia; E66.9 Obesity, unspecified; E11.9 Type 2 diabetes mellitus without complications; I11.0 Hypertensive heart disease with heart failure; D72.829 Elevated white blood cell count, unspecified; E78.5 Hyperlipidemia, unspecified; K21.9 Gastro-esophageal reflux disease without esophagitis; M19.90 Unspecified osteoarthritis, unspecified site; M10.9 Gout, unspecified; I25.10 Atherosclerotic heart disease of native coronary artery without angina pectoris; E89.0 Postprocedural hypothyroidism; D12.2 Benign neoplasm of ascending colon; Z68.21 Body mass index [BMI] 21.0-21.9, adult; I25.2 Old myocardial infarction; Z79.82 Long term (current) use of aspirin; Z79.899 Other long term (current) drug therapy; Z82.49 Family history of ischemic heart disease and other diseases of the circulatory system
CPT/HCPCS: 36415; 71045; 71046; 71250; 76770; 76857; 80048; 80053; 80074; 81001; 82140; 82570; 82962; 83036; 83735; 84165; 84300; 84443; 84484; 85007; 85014; 85018; 85025; 85027; 85049; 85520; 85610; 85730; 86021; 86160; 87040; 93005; 93010; 93306; 93312; 93320; 93325; G0378; A9270-GY; J0610; J0692; J0696; J1644; J1815; J2250; J2704; J7030; J7040